=== PATIENT | female | born 1955 ===

== ENCOUNTER 2016-07-03 07:35 | Emergency (ER) | payer OTHER ==
[2016-07-03 08:01] VITALS: BP 136/83; PULSE 105; RESP 20; TEMP 98.1; O2SAT 98; BMI 27.3
--- NOTE | 2016-07-03 08:32 | C.PDOC ---
History Of Present Illness 60 y/o female presents to ED with complaints of itchy rash diffuse through whole body for 1 day. Patient denies any fever, chills, N/V/D. No further complaints at this time. Time Seen by Provider: 07/03/16 07:36 Chief Complaint (Nursing): Abnormal Skin Integrity History Per: Patient History/Exam Limitations: no limitations Onset/Duration Of Symptoms: Days Quality Of Symptoms: Itching Past Medical History Reviewed: Historical Data, Nursing Documentation, Vital Signs Vital Signs: Last Vital Signs Temp 98.1 F 07/03/16 07:45 Pulse 105 H 07/03/16 07:45 Resp 20 07/03/16 07:45 BP 136/83 07/03/16 07:45 Pulse Ox 98 07/03/16 17:56 Family History: States: Unknown Family Hx - Social History Hx Alcohol Use: No Hx Substance Use: No - Immunization History Hx Tetanus Toxoid Vaccination: Yes Hx Influenza Vaccination: Yes Hx Pneumococcal Vaccination: No Review Of Systems Except As Marked, All Systems Reviewed And Found Negative. Constitutional: Negative for: Fever, Chills Respiratory: Negative for: Shortness of Breath Gastrointestinal: Negative for: Nausea, Vomiting, Diarrhea Skin: Positive for: Rash Physical Exam - Physical Exam Appears: Non-toxic, No Acute Distress Skin: Normal Color, Warm Head: Atraumatic, Normacephalic Oral Mucosa: Moist Throat: Normal Neck: Normal ROM Cardiovascular: Rhythm Regular Respiratory: No Rales, No Rhonchi, No Wheezing Extremity: Normal ROM, Other Neurological/Psych: Oriented x3, Normal Speech, Normal Cognition ED Course And Treatment O2 Sat by Pulse Oximetry: 98 (Room air ) Progress Note: Patient given Benadryl and Prednisone. On re-evaluation feeling better, lungs clear Reassessment Condition: Improved Disposition Counseled Patient/Family Regarding: Diagnosis, Need For Followup, Rx Given - Disposition Referrals: [facility] [Outside] [facility] [Outside] Disposition: HOME/ ROUTINE Disposition Time: 08:30 Condition: IMPROVED Additional Instructions: Benadryl as needed for itch Prescriptions: predniSONE [Prednisone] 60 mg PO DAILY #4 tab Instructions: Urticaria (ED), Allergies (ED), General Allergic Reaction (ED) Print Language: FAROESE - POA Present On Arrival: None - Clinical Impression Clinical Impression: Urticaria, Allergic urticaria - PA / MEDICAL BILLING SPECIALIST / Resident Statement MD/DO has reviewed & agrees with the documentation as recorded. - Scribe Statement The provider has reviewed the documentation as recorded by the Vinicio Duque All medical record entries made by the Vinicio were at my direction and personally dictated by me. I have reviewed the chart and agree that the record accurately reflects my personal performance of the history, physical exam, medical decision making, and the department course for this patient. I have also personally directed, reviewed, and agree with the discharge instructions and disposition.
== END 2016-07-03 09:05 | disposition home or self-care (01) ==
LOC: C.ER 07:35
DX: L50.0 Allergic urticaria (principal)

== ENCOUNTER 2016-07-25 08:37 | Emergency (ER) | payer OTHER ==
[2016-07-25 08:37] VITALS: BMI 26.5
[2016-07-25 08:49] VITALS: TEMP 97.5
--- NOTE | 2016-07-25 09:43 | C.PDOC ---
History Of Present Illness 60 y/o F p/w rash since yesterday. Patient reports this rash to her thorax, arms , and scalp. She states it is itchy. She denies any known exposures. Denies throat swelling, drooling, dyspnea. Has taken no medications for it. Time Seen by Provider: 07/25/16 09:05 Chief Complaint (Nursing): Abnormal Skin Integrity Past Medical History Vital Signs: Last Vital Signs Temp 97.5 F L 07/25/16 08:48 Pulse 99 H 07/25/16 08:48 Resp 20 07/25/16 08:48 BP 99/60 L 07/25/16 08:48 Pulse Ox 99 07/25/16 08:48 Family History: States: No Known Family Hx, Unknown Family Hx - Social History Hx Alcohol Use: No Hx Substance Use: No - Immunization History Hx Tetanus Toxoid Vaccination: Yes Hx Influenza Vaccination: Yes Hx Pneumococcal Vaccination: No Review Of Systems Except As Marked, All Systems Reviewed And Found Negative. Constitutional: Negative for: Fever Cardiovascular: Negative for: Chest Pain Respiratory: Negative for: Shortness of Breath Physical Exam - Physical Exam Appears: No Acute Distress Skin: Rash (urticaria diffusely to thorax and arms, blanching erythema, nontender) Head: Atraumatic, Normacephalic Eye(s): bilateral: Normal Inspection Oral Mucosa: Moist, No Drooling Tongue: No Swelling Lips: No Swelling Throat: No Erythema, No Exudate Neck: Normal ROM, Supple Cardiovascular: Rhythm Regular Respiratory: Normal Breath Sounds Extremity: No Tenderness, No Swelling Pulses: Left Radial: Normal, Right Radial: Normal Neurological/Psych: Normal Speech Gait: Steady ED Course And Treatment O2 Sat by Pulse Oximetry: 99 Medical Decision Making Medical Decision Making: Patient with generalized allergic reaction and no evidence of anaphylaxis. Will treat with benadryl, pepcid, and steroids. F/u PMD, instructed to return to the ER immediately for any changes in breathing or throat swelling. Disposition Counseled Patient/Family Regarding: Studies Performed, Diagnosis, Need For Followup, Rx Given - Disposition Disposition: HOME/ ROUTINE Disposition Time: 09:43 Condition: STABLE Prescriptions: DiphenhydrAMINE [Benadryl] 2 cap PO Q8 #25 cap Famotidine [Pepcid] 1 tab PO BID #14 tab Prednisone [Deltasone] 2 tab PO DAILY #8 tablet Instructions: General Allergic Reaction (ED) - Clinical Impression Clinical Impression: Urticaria
[2016-07-25 09:56] VITALS: BP 125/78; PULSE 75; RESP 16; O2SAT 97
== END 2016-07-25 09:55 | disposition home or self-care (01) ==
LOC: C.ER 08:37
DX: L50.9 Urticaria, unspecified (principal)

== ENCOUNTER 2016-07-29 08:19 | Inpatient (IN) | payer OTHER ==
[2016-07-29 08:28] VITALS: BMI 21.9
[2016-07-29] MEDS ORDERED: Sodium Chloride 0.9% 1,000 ML IV ONE (08:47)
[2016-07-29] MEDS ORDERED: Albuterol-Ipratrop 3 mg / 0.5 (3 ml) UD ONE ×4 (08:47→15:15)
[2016-07-29] MEDS ORDERED: Albuterol-Ipratrop 3 mg / 0.5 (3 ml) UD INH STA ×3 (08:47→11:23)
[2016-07-29] MEDS ORDERED: Sodium Chloride 0.9% 1,000 ML ONE (08:54)
[2016-07-29 09:03] LABS: BASO # 0.1 K/uL (0.0-0.2); BASO % 0.4 % (0.0-2.0); EOS # 0.1 K/uL (0.0-0.7); EOS % 0.5 % (0.0-4.0); HEMATOCRIT 41.3 % (34.0-47.0); LYMPH # 4.2 K/uL (1.0-4.3); LYMPH % 28.6 % (20.0-40.0); MEAN CELL VOLUME 92.6 fL (81.0-99.0); MEAN CORPUSCULAR HEMOGLOBIN 30.8 pg (27.0-31.0); MEAN CORPUSCULAR HGB CONC 33.3 g/dL (33.0-37.0); MEAN PLATELET VOLUME 9.2 fL (7.2-11.7); MONO # 1.1 K/uL (0.0-0.8); MONO % 7.6 % (0.0-10.0); RED CELL DISTRIBUTION WIDTH 12.9 % (11.5-14.5); WHITE BLOOD COUNT 14.5 K/uL (4.8-10.8)
[2016-07-29 09:30] LABS: CHLORIDE 100 mmol/L (98-107); POTASSIUM 3.5 mmol/L (3.6-5.2); SODIUM 136 mmol/L (132-148)
[2016-07-29 09:32] LABS: ALB/GLOB RATIO 1.4 (1.0-2.1); ALKALINE PHOSPHATASE 102 U/L (38-126); AST/SGOT 27 U/L (14-36); BILIRUBIN,TOTAL 0.6 mg/dL (0.2-1.3); CARBON DIOXIDE 27 mmol/L (22-30); GFR AFRICAN-AMERICAN > 60
[2016-07-29 09:33] LABS: ALT/SGPT 26 U/L (9-52); BLOOD UREA NITROGEN 13 mg/dL (7-17); GLUCOSE,RANDOM 99 mg/dL (65-105)
--- NOTE | 2016-07-29 09:57 | C.PDOC ---
History Of Present Illness 60 yr old female presents to the ER for evaluation of a rash which started yesterday. Patient states today, while on her way to work she started feel SOB and came in to ED. States the rash is itchy and has had this multiple times since April and has been seen here but never followed up outpatient. Also reports took 50mg of Benadryl this morning. Denies fever, chills, vision changes , chest pain, nausea, vomiting, weakness or numbness. Time Seen by Provider: 07/29/16 08:34 Chief Complaint (Nursing): Allergic Reaction History Per: Patient History/Exam Limitations: no limitations Onset/Duration Of Symptoms: Days (1) Possible Cause: Unknown Associated Symptoms: Itching Home/EMS Treatment: Benadryl (50mg) Recent travel outside of the [place]: No Past Medical History Reviewed: Historical Data, Nursing Documentation, Vital Signs Vital Signs: Last Vital Signs Temp 98.1 F 07/29/16 17:08 Pulse 77 07/29/16 17:08 Resp 18 07/29/16 17:08 BP 111/48 L 07/29/16 17:08 Pulse Ox 95 07/29/16 17:08 - Medical History PMH: Asthma Family History: States: No Known Family Hx - Social History Hx Alcohol Use: No Hx Substance Use: No - Immunization History Hx Tetanus Toxoid Vaccination: Yes Hx Influenza Vaccination: Yes Hx Pneumococcal Vaccination: No Review Of Systems Except As Marked, All Systems Reviewed And Found Negative. Constitutional: Negative for: Fever, Chills Eyes: Negative for: Vision Change Cardiovascular: Negative for: Chest Pain Gastrointestinal: Negative for: Nausea, Vomiting Skin: Positive for: Rash Neurological: Negative for: Weakness, Numbness Physical Exam - Physical Exam Appears: Well, Non-toxic, No Acute Distress Skin: Warm, Dry, Rash (Diffuse erythematous urticarial rash.) Head: Atraumatic, Normacephalic Eye(s): bilateral: Normal Inspection, PERRL, EOMI Oral Mucosa: Moist Throat: Normal, No Erythema, No Exudate, No Drooling Chest: Symmetrical, No Tenderness Cardiovascular: Rhythm Regular, No Murmur Respiratory: No Rales, Wheezing (Bilateral wheezing) Gastrointestinal/Abdominal: Normal Exam, Soft, No Tenderness, No Guarding, No Rebound Extremity: Normal ROM, No Swelling Neurological/Psych: Oriented x3, Normal Speech, Normal Motor ED Course And Treatment - Laboratory Results Result Diagrams: 07/29/16 09:00 07/29/16 09:00 O2 Sat by Pulse Oximetry: 94 - Radiology CXR: Viewed By Me, Read By Radiologist CXR Interpretation: Yes: No Acute Disease Progress Note: PLAN: CXR, CBC, CMP, Duoneb INH, Pecid IVP, Solumedrol IVP & Sodium Chloride IV. On ree-valuation, wheezing persists. Additional treatments ordered. On re-evaluation, wheezing improved. Pt notes she feels better. Dimished breath sounds. Pulse ox 90-93. Sob upon exertion. case discussed with dr Mariscal, agreed upon plan and admission. Disposition - Disposition Disposition: HOSPITALIZED Disposition Time: 14:00 Condition: STABLE - Clinical Impression Clinical Impression: Exacerbation of asthma, Allergic urticaria - PA / ACCOUNTING CONSULTANT / Resident Statement MD/DO has reviewed & agrees with the documentation as recorded. - Scribe Statement The provider has reviewed the documentation as recorded by the Scribe Giovana Falcon All medical record entries made by the Scribe were at my direction and personally dictated by me. I have reviewed the chart and agree that the record accurately reflects my personal performance of the history, physical exam, medical decision making, and the department course for this patient. I have also personally directed, reviewed, and agree with the discharge instructions and disposition.
--- NOTE | 2016-07-29 10:20 | RAD ---
PROCEDURE: CHEST RADIOGRAPH, 1 VIEW HISTORY: SOB COMPARISON: None available. FINDINGS: LUNGS: Biapical pleural thickening. No focal infiltrate or effusion. PLEURA: No pneumothorax or pleural fluid seen. CARDIOVASCULAR: Normal. OSSEOUS STRUCTURES: No significant abnormalities. VISUALIZED UPPER ABDOMEN: Normal. OTHER FINDINGS: None. IMPRESSION: No active disease.
--- NOTE | 2016-07-29 13:41 | CP.PCM.HP ---
History of Present Illness - History of Present Illness History of Present Illness: COMPREHENSIVE HISTORY & PHYSICAL EXAM HPI WHILE GOING TO WORK PT DEVELOPED RASH A/W SOB AND WHEEZING . PT RECEIVED MULTIPLE BRONCHODILATOR THERAPY BUT WHEEZE PERSISTED COUGH WITH WHITE EXPECTORATION PAST HIST. B.ASTHMA AND RASH FOR FEW MONTHS . NOT EVALUATED BY DERMATOLOGY PERSONAL HIST: Smoking. HEAVY Alcohol. N Allergy N Travel_- . FAMILY HIST : ROS : Constitutional: Negative for weight change, chills, Eyes: Negative for redness , swelling, itching, discharge, vision changes, blurry vision, double vision, glaucoma, cataracts, Ears: Negative for hearing loss, ringing, , tinnitus, vertigo Nose: Negative for rhinorrhea, stuffiness, sniffing, itching, postnasal drip, discoloration, nasal congestion and epistaxis. Throat: Negative for throat clearing, sore throat, hoarseness, difficulty swallowing and difficulty speaking. Respiratory: POS for cough, chest tightness, sputum or phlegm, chronic cough , NO hemoptysis, POS wheezing, snoring at night, pleuritic chest pain and daytime somnolence. Cardiovascular: Negative for chest pain, palpitations, orthopnea, PND, Edema of legs, leg cramps, angina, claudication, , irregular heartbeat, Neurology: Negative for irritability, muscle weakness, numbness and tingling, seizures, tremors, migraines, slurred speech, syncope, memory loss, mood changes , recurrent headaches Gastrointestinal: Negative for difficulty swallowing, diarrhea, constipation, black stools, rectal bleeding, nausea, flatulence, reflux, poor appetite, changes in bowel habits, abdominal pain Genitourinary: Negative for frequent urination, hematuria, discharge, incontinence, urinary retention, frequent UTI, Psychiatric: Negative for depression, anxiety/panic, suicidal tendencies, Musculoskeletal: Negative for swollen joints, back pain, , neck pain, morning stiffness of joints, . Skin: Negative for rash, ulcers, itching, dry skin and pigmented lesions. P/E: Constitutional: Appears stated age and in no apparent distress. Head: Normocephalic. Ears: External ear canals patent without inflammation. Tympanic membranes intact with normal light reflex and landmark. Eyes: Pupils are central, bilaterally equal, symmetrical and reacts to light with normal movements and no icterus or pallor. Nose: External nares are patent. Mucosa is pink Mouth-Throat: Good general appearance and condition. No post-pharyngeal/oropharyngeal erythema and tonsillar hypertrophy. Good dental hygiene. Neck-Lymphatic: Neck is supple with normal ROM, no thyromegaly, lymph nodes or masses. JVD is normal with no carotid bruit. Lungs:MATTY WHEEZE Cardiovascular: S1 and S2 are normal with no murmurs, gallops and rub. GI Exam: No hepatomegaly. Abdomen is soft and non-tender. No Organomegaly , masses or hernias are evident and bowel sounds are normal and active. Neurology: Higher function and all cranial nerves intact, with no gross motor or sensory deficit. Superficial and deep reflexes are normal with downwards planters. No cerebellar deficit with normal gait. Musculoskeletal: No tender spots with normal curvature of the spine with no swelling or restricted ROM of the small and large joints. Extremities: Homans sign absent. Intact pulses with no pitting edema, calf tenderness or skin color changes. Skin: No rash, eruptions or abnormal skin pigmentation LAB/RADIOLOGY: ASSESMENT : ACUTE EXACERBATION OF COPD WITH RESP INFECTION RASH , ? URTICARIAL PLAN: NEBULISER/STEROIDS /AB Present on Admission - Present on Admission Any Indicators Present on Admission: No Past Patient History - Past Social History Smoking Status: Heavy Smoker > 10 Cigarettes Daily - PULMONARY Hx Asthma: Yes - ENDOCRINE/METABOLIC Other/Comment: Thyroid dis - PSYCHIATRIC Hx Substance Use: No - SURGICAL HISTORY Hx Surgeries: Yes Hx Section: Yes - ANESTHESIA Hx Anesthesia: Yes Hx Anesthesia Reactions: No Meds Allergies/Adverse Reactions: Allergies Allergy/AdvReac Type Severity Reaction Status Date / Time Penicillins Allergy Verified 07/29/16 08:26 Results - Vital Signs Recent Vital Signs: Last Vital Signs Temp 99.1 F 07/29/16 08:27 Pulse 100 H 07/29/16 12:12 Resp 16 07/29/16 12:12 BP 112/53 L 07/29/16 12:12 Pulse Ox 93 L 07/29/16 12:12 - Labs Result Diagrams: 07/31/16 06:24 07/31/16 06:24
[2016-07-29] MEDS: Albuterol-Ipratrop 3 mg / 0.5 (3 ml) UD INH SCH (15:13)
[2016-07-29] MEDS ORDERED: MethylPREDNISolone 40 mg Vial ONE (17:05)
[2016-07-29 21:02] LABS: RBC URINE < 1 /hpf (0-3); TRANSITIONAL EPITHIAL < 1 /hpf (0-3); URINE BACTERIA RARE (<OCC); URINE BILIRUBIN NEGATIVE (NEGATIVE); URINE BLOOD NEGATIVE (NEGATIVE); URINE COLOR Yellow (YELLOW); URINE GLUCOSE (UA) 3+ mg/dL (Normal); URINE KETONE NEGATIVE (NEGATIVE); URINE LEUKOCYTE ESTERASE NEG Leu/uL (Negative); URINE PROTEIN NEGATIVE (NEGATIVE); URINE UROBILINOGEN NORMAL mg/dL (0.2-1.0); WBC URINE < 1 /hpf (0-5)
[2016-07-29] MEDS: Ciprofloxacin 400mg/200ml D5W 400 MG/200 ML BAG IVPB SCH (22:21)
--- NOTE | 2016-07-29 22:25 | CP.PCM.CON ---
History of Present Illness - History of Present Illness History of Present Illness: INFECTIOUS DISEASE CONSULT; DICTATED DICTATION #[id number]. SEE REPORTS. SEE ORDERS. Past Patient History - Past Medical History & Family History Past Medical History?: Yes - Past Social History Smoking Status: Heavy Smoker > 10 Cigarettes Daily - CARDIAC Hx Cardiac Disorders: No - PULMONARY Hx Respiratory Disorders: Yes Hx Asthma: Yes - NEUROLOGICAL Hx Neurological Disorder: No - HEENT Hx HEENT Problems: No - RENAL Hx Chronic Kidney Disease: No - ENDOCRINE/METABOLIC Hx Endocrine Disorders: Yes Other/Comment: Thyroid dis - HEMATOLOGICAL/ONCOLOGICAL Hx Blood Disorders: No - INTEGUMENTARY Hx Dermatological Problems: No - MUSCULOSKELETAL/RHEUMATOLOGICAL Hx Musculoskeletal Disorders: No Hx Falls: No - GASTROINTESTINAL Hx Gastrointestinal Disorders: No - GENITOURINARY/GYNECOLOGICAL Hx Genitourinary Disorders: No - PSYCHIATRIC Hx Psychophysiologic Disorder: No Hx Substance Use: No - SURGICAL HISTORY Hx Surgeries: Yes Hx Section: Yes - ANESTHESIA Hx Anesthesia: Yes Hx Anesthesia Reactions: No Meds Allergies/Adverse Reactions: Allergies Allergy/AdvReac Type Severity Reaction Status Date / Time Penicillins Allergy Verified 07/29/16 08:26 - Medications Medications: Current Medications Albuterol/Ipratropium (Duoneb 3 Mg/0.5 Mg (3 Ml) Ud) 3 ml INH RQ6 [facility] Last Admin: 07/29/16 15:13 Dose: 3 ml Hydroxyzine HCl (Atarax) 25 mg PO TID [facility] Last Admin: 07/29/16 19:30 Dose: 25 mg Ciprofloxacin (Cipro 400mg/200ml Dsw) 400 mg in 200 mls @ 133 mls/hr IVPB Q12H [facility] Last Admin: 07/29/16 22:21 Dose: 133 mls/hr Methylprednisolone (Solu-Medrol) 60 mg IV Q8H [facility] Last Admin: 07/29/16 22:21 Dose: 60 mg Results - Vital Signs Recent Vital Signs: Last Vital Signs Temp 98.1 F 07/29/16 17:08 Pulse 77 07/29/16 17:08 Resp 18 07/29/16 17:08 BP 111/48 L 07/29/16 17:08 Pulse Ox 94 L 07/29/16 19:52 - Labs Result Diagrams: 07/29/16 09:00 07/29/16 09:00 Labs: Laboratory Results - last 24 hr 07/29/16 20:46 Urine Color Yellow Urine Clarity Clear Urine pH 6.0 Ur Specific [place] 1.027 Urine Protein Negative Urine Glucose (UA) 3+ H Urine Ketones Negative Urine Blood Negative Urine Nitrate Negative Urine Bilirubin Negative Urine Urobilinogen Normal Ur Leukocyte Esterase Neg Urine WBC (Auto) < 1 Urine RBC (Auto) < 1 Ur Squamous Epith Cells 1 Ur Transition Epith Cell < 1 Urine Bacteria Rare
[2016-07-30] MEDS: Albuterol-Ipratrop 3 mg / 0.5 (3 ml) UD INH SCH ×4 (01:16→20:16)
[2016-07-30] MEDS ORDERED: guaiFENesin 100 mg/5 ml Syrup UD PO ONE (03:10)
[2016-07-30 08:59] LABS: CHLORIDE 106 mmol/L (98-107); POTASSIUM 3.8 mmol/L (3.6-5.2); SODIUM 141 mmol/L (132-148)
[2016-07-30 09:01] LABS: ALB/GLOB RATIO 1.3 (1.0-2.1); ALKALINE PHOSPHATASE 95 U/L (38-126); AST/SGOT 30 U/L (14-36); BILIRUBIN,TOTAL 0.5 mg/dL (0.2-1.3); CARBON DIOXIDE 26 mmol/L (22-30); GFR AFRICAN-AMERICAN > 60; TOTAL PROTEIN 6.5 g/dL (6.3-8.3)
[2016-07-30 09:02] LABS: ALT/SGPT 38 U/L (9-52); BLOOD UREA NITROGEN 12 mg/dL (7-17); CALCIUM 9.3 mg/dl (8.6-10.4); GLUCOSE,RANDOM 122 mg/dL (65-105)
--- NOTE | 2016-07-30 09:35 | CON ---
DATE: 07/29/2016 REQUESTING PHYSICIAN: Dr. Mariscal. REASON FOR CONSULTATION: Shortness of breath, hypoxemia and rash. HISTORY OF PRESENT ILLNESS: The patient is a 60-year-old female with no significant past medical his tory except for asthma who presents to the ER for evaluation of shortness of breath and rash. The pa ish states while on her way to work she started feeling short of breath today and came to the ER. The patient in the ER was found to be hypoxemic with a pulse ox of 95%. Chest x-ray on admission jean-claude wed no active disease. The patient also was complaining of generalized itching and a rash which she states has had for around 6 months which comes and goes. The patient states that she has treated wit h Benadryl and it helps. The patient presently denies any fever or chills or any joint pains. The p atient denies any nausea, vomiting, or diarrhea. The patient denies any headaches or seizure disorde r. The patient was found to have leukocytosis with a WBC count of 14.5. Infectious disease consulta tion therefore requested for hypoxia, shortness of breath and rash. PAST MEDICAL HISTORY: Unremarkable except for asthma. FAMILY HISTORY: Unknown and presently noncontributory. SOCIAL HISTORY: The patient is a heavy smoker, smokes about 15 cigarettes a day for several years. Denies any substance abuse. Denies any alcohol use. VACCINATIONS: She is up-to-date on tetanus toxoid vaccination as well as influenza vaccination. Douglas s not remember taking pneumococcal vaccination. REVIEW OF SYSTEMS: RESPIRATORY: Complains of shortness of breath and cough. CARDIOVASCULAR SYSTEM: Denies any chest pains or palpitations. GASTROINTESTINAL: Denies any nausea, vomiting, diarrhea or obstipation. GENITOURINARY: Unremarkable. No dysuria, no hematuria. No history of kidney stones. CENTRAL NERVOUS SYSTEM: No headaches, no seizures. Rest of the review of systems is unremarkable. MUSCULOSKELETAL: Denies any joint pains. PHYSICAL EXAMINATION: GENERAL: The patient is a 60-year-old moderate-built female. Weight 124 pounds. Height 5 feet 3 in ches. VITAL SIGNS: Blood pressure 111/48, respirations 18, pulse 77, temperature 98.1, pulse ox 95% on alejandrina m air. HEENT: Pupils equal and reactive to light and accommodation. Extraocular movements full. Fundus ne gative. Sclerae nonicteric. Conjunctivae normal. JVP not elevated. Neck appears to be supple. No lymphadenopathy appreciated. No thrush noted. LUNGS: Bilateral wheezing and rhonchi. CARDIOVASCULAR SYSTEM: S1, S2. Sinus tachycardia. ABDOMEN: Soft, bowel sounds are present, nontender. EXTREMITIES: No cyanosis, clubbing or edema. CENTRAL NERVOUS SYSTEM: No gross deficits. Speech is normal. Awake, alert. Moves all extremities. Reflexes are equal and symmetrical. Cranial nerves seem to be intact. SKIN: Skin appears to be warm and dry with diffuse erythematous urticarial rash with palmar erythema noted. Rash is itchy. Soles/feet also have erythema bilaterally. Faint rash. Rose of excoriation s on trunk noted. LABORATORY DATA: WBCs are 14.5, H and H of 13.7 and 41.3, platelets 210. Creatinine 0.6, BUN of 13, potassium is 3.5. Liver function tests: AST, ALT normal. Bilirubin is normal. Chest x-ray on admission: No active disease. IMPRESSION: 1. Exacerbation of bronchial asthma. 2. Rash, etiology not clear, rule out vasculitis, rule out allergic dermatitis, rule out neurodermat itis, questionable. Cannot rule out scabies, but no burrows noted. PLAN: Pancultures. Will get PASTORA, double stranded DNA. Also will get sed rate, C-reactive proteins, serum IgE levels. Will start her on IV Cipro 400 mg q. 12 hourly as patient is ALLERGIC TO PENICILL IN. Continue IV Pepcid and IV Solu-Medrol as ordered by PMD. Presently on 60 mg q. 6 hourly, Atarax 25 mg t.i.d. p.r.n. for itching, pulmonary toilet, DuoNeb treatments. We will follow along with you and make further recommendations as needed. Thank you very much for allowing me to participate in the care of your patient. Lolis Chappell MD cc: [id number] TT: 07/30/2016 09:34:10 Confirmation # [id number] Dictation # [id number] mn
[2016-07-30] MEDS: Ciprofloxacin 400mg/200ml D5W 400 MG/200 ML BAG IVPB SCH ×2 (09:56→21:46)
[2016-07-30] MEDS: MethylPREDNISolone 40 mg Vial IV SCH ×2 (13:16→20:14)
--- NOTE | 2016-07-30 13:17 | CP.PCM.PN ---
Subjective - Date & Time of Evaluation Date of Evaluation: 07/30/16 Time of Evaluation: 13:15 - Subjective Subjective: CHIEF COMPLAINTS TODAY : COUGH WITH WHEEZING ROS. HEENT : N. Resp : POS cough, wheezing ,pleuritic CP , NO hemoptysis Cardio : No anginal CP, PND, orthopnea, palpitation GI : No abd.pain, n/v ,diarrhea or GI bleeding . DEPENDENCY CASE MANAGER : No headache, vertigo, focal deficit. Musculoskel : No joint swelling , Derm : No rash Psych : Normal affect. Ext : No swelling ,calf pain PE. Pt. is alert awake in no distress. V.S As noted in the chart Head ,ear nose,throat and eyes : Normal. Neck : Supple with normal carotids. Lungs: MATTY. SCATTERED RONCHI Heart : S1 & S2 normal with S4. No murmur. Abd : Soft non tender with normal bowel sounds. Neuro : Moves all ext. with no localized deficit. Ext : No edema with intact pulses.Non tender calves Derm : No rashes or decubitus ulcer. LABS/RADIOLOGY: ASSESSMENT/PLAN : CONT IV AB/STEROIDS Objective - Vital Signs/Intake and Output Vital Signs (last 24 hours): Temp Pulse Resp BP Pulse Ox 97.7 F 82 20 97/59 L 94 L 07/29/16 23:31 07/29/16 23:31 07/29/16 23:31 07/29/16 23:31 07/29/16 23:31 - Medications Medications: Current Medications Albuterol/Ipratropium (Duoneb 3 Mg/0.5 Mg (3 Ml) Ud) 3 ml INH RQ6 [facility] Last Admin: 07/30/16 01:16 Dose: 3 ml Heparin Sodium (Porcine) (Heparin) 5,000 units SC Q12 [facility] Last Admin: 07/30/16 10:06 Dose: 5,000 units Hydroxyzine HCl (Atarax) 25 mg PO TID [facility] Last Admin: 07/30/16 09:56 Dose: 25 mg Ciprofloxacin (Cipro 400mg/200ml Dsw) 400 mg in 200 mls @ 133 mls/hr IVPB Q12H [facility] Last Admin: 07/30/16 09:56 Dose: 133 mls/hr Methylprednisolone (Solu-Medrol) 40 mg IV Q8H [facility] - Labs Labs: 07/30/16 08:29
--- NOTE | 2016-07-30 16:29 | CP.PCM.PN ---
Subjective - Date & Time of Evaluation Date of Evaluation: 07/30/16 Time of Evaluation: 16:29 - Subjective Subjective: CHIEF COMPLAINTS TODAY : afebrile, c/o cough and wheezing Generalized itching much less Rash faint generalized. ROS. HEENT : N. Resp : POS COUGH, WHEEZING , NO pleuritic CP , NO hemoptysis Cardio : No anginal CP, PND, orthopnea, palpitation GI : No abd.pain, n/v ,diarrhea or GI bleeding . 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 Musculoskel : No joint swelling , Derm : No rash Psych : Normal affect. Ext : No swelling ,calf pain PE. Pt. is alert awake in no distress. V.S As noted in the chart Head ,ear nose,throat and eyes : Normal. Neck : Supple with normal carotids. Lungs: MATTY. SCATTERED RONCHI /EXPIRATORY WHEEZE Heart : S1 & S2 normal with S4. No murmur. Abd : Soft non tender with normal bowel sounds. Neuro : Moves all ext. with no localized deficit. Ext : No edema with intact pulses.Non tender calves Derm : GENERALIZED FAINT ERYTHEMATOUS RASH MORE PROMINENT LOWER EXTREMITIES AND ARMS. LABS/RADIOLOGY: reviewed BLOOD CULTURES -VE TO DATE ASSESSMENT; exacerbation of bronchial asthma Chronic Rash generalized etiology not clear/ ? vasculitis / ALLERGIC/CONTACT DERMATITIS. PLAN; CONTINUE iv CIPRO 400 MG EVERY 12 HOURLY 07/29 iv SOLU-mEDROL 40 MG EVERY 8 HOURLY ATARAX WHEN NECESSARY PER pmd FOR ITCHING. fOLLOW-UP CULTURES AND ADJUST ANTIBIOTICS. Objective - Vital Signs/Intake and Output Vital Signs (last 24 hours): Temp Pulse Resp BP Pulse Ox 98.3 F 97 H 18 119/61 92 L 07/30/16 08:00 07/30/16 08:00 07/30/16 08:00 07/30/16 08:00 07/30/16 08:00 Intake and Output: 07/30/16 07/30/16 06:59 18:59 Intake Total 440 730 Balance 440 730 - Medications Medications: Current Medications Albuterol/Ipratropium (Duoneb 3 Mg/0.5 Mg (3 Ml) Ud) 3 ml INH RQ6 [facility] Last Admin: 07/30/16 13:31 Dose: Not Given Heparin Sodium (Porcine) (Heparin) 5,000 units SC Q12 [facility] Last Admin: 07/30/16 10:06 Dose: 5,000 units Hydroxyzine HCl (Atarax) 25 mg PO TID [facility] Last Admin: 07/30/16 13:17 Dose: 25 mg Ciprofloxacin (Cipro 400mg/200ml Dsw) 400 mg in 200 mls @ 133 mls/hr IVPB Q12H [facility] Last Admin: 07/30/16 09:56 Dose: 133 mls/hr Methylprednisolone (Solu-Medrol) 40 mg IV Q8H [facility] Last Admin: 07/30/16 13:16 Dose: 40 mg - Labs Labs: 07/30/16 08:29 Assessment and Plan (1) Allergic urticaria Status: Acute (2) Exacerbation of asthma Status: Acute
[2016-07-30 17:03] VITALS: RESP 20
[2016-07-31] MEDS: Albuterol-Ipratrop 3 mg / 0.5 (3 ml) UD INH SCH ×3 (01:38→19:06)
[2016-07-31] MEDS: MethylPREDNISolone 40 mg Vial IV SCH ×3 (05:38→21:26)
[2016-07-31 06:47] LABS: CHLORIDE 99 mmol/L (98-107); POTASSIUM 3.4 mmol/L (3.6-5.2); SODIUM 140 mmol/L (132-148)
[2016-07-31 06:49] LABS: ALB/GLOB RATIO 1.4 (1.0-2.1); AST/SGOT 38 U/L (14-36); BILIRUBIN,TOTAL 0.5 mg/dL (0.2-1.3); CARBON DIOXIDE 29 mmol/L (22-30); GFR AFRICAN-AMERICAN > 60; TOTAL PROTEIN 7.1 g/dL (6.3-8.3)
[2016-07-31 06:50] LABS: ALKALINE PHOSPHATASE 96 U/L (38-126); ALT/SGPT 53 U/L (9-52); BLOOD UREA NITROGEN 14 mg/dL (7-17); CALCIUM 9.1 mg/dl (8.6-10.4); GLUCOSE,RANDOM 109 mg/dL (65-105)
[2016-07-31 07:00] LABS: BASO % 0.1 % (0.0-2.0); HEMATOCRIT 41.5 % (34.0-47.0); LYMPH # 2.9 K/uL (1.0-4.3); LYMPH % 13.6 % (20.0-40.0); MEAN CELL VOLUME 94.1 fL (81.0-99.0); MEAN CORPUSCULAR HEMOGLOBIN 30.9 pg (27.0-31.0); MEAN CORPUSCULAR HGB CONC 32.9 g/dL (33.0-37.0); MEAN PLATELET VOLUME 9.6 fL (7.2-11.7); MONO # 1.5 K/uL (0.0-0.8); MONO % 6.8 % (0.0-10.0); NRBC % 0.1 % (0.0-2.0); RED CELL DISTRIBUTION WIDTH 13.1 % (11.5-14.5); WHITE BLOOD COUNT 21.3 K/uL (4.8-10.8)
[2016-07-31] MEDS: Ciprofloxacin 400mg/200ml D5W 400 MG/200 ML BAG IVPB SCH ×2 (10:52→21:27)
--- NOTE | 2016-07-31 11:29 | CP.PCM.PN ---
Subjective - Date & Time of Evaluation Date of Evaluation: 07/31/16 Time of Evaluation: 11:28 - Subjective Subjective: CHIEF COMPLAINTS TODAY : COUGH WITH WHEEZING WBC 21K ROS. HEENT : N. Resp : POS cough, wheezing ,pleuritic CP , NO hemoptysis Cardio : No anginal CP, PND, orthopnea, palpitation GI : No abd.pain, n/v ,diarrhea or GI bleeding . 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 Musculoskel : No joint swelling , Derm : No rash SEEN Psych : Normal affect. Ext : No swelling ,calf pain PE. Pt. is alert awake in no distress. V.S As noted in the chart Head ,ear nose,throat and eyes : Normal. Neck : Supple with normal carotids. Lungs: MATTY. SCATTERED RONCHI Heart : S1 & S2 normal with S4. No murmur. Abd : Soft non tender with normal bowel sounds. Neuro : Moves all ext. with no localized deficit. Ext : No edema with intact pulses.Non tender calves Derm : No rashes or decubitus ulcer. LABS/RADIOLOGY: ASSESSMENT/PLAN : CONT IV AB/STEROIDS Objective - Vital Signs/Intake and Output Vital Signs (last 24 hours): Temp Pulse Resp BP Pulse Ox 97.8 F 79 20 150/55 L 97 07/31/16 08:00 07/31/16 08:00 07/31/16 08:00 07/31/16 08:00 07/31/16 08:00 Intake and Output: 07/30/16 07/31/16 23:59 11:59 Intake Total 1230 Balance 1230 - Medications Medications: Current Medications Albuterol/Ipratropium (Duoneb 3 Mg/0.5 Mg (3 Ml) Ud) 3 ml INH RQ6 [facility] Last Admin: 07/31/16 08:41 Dose: 3 ml Heparin Sodium (Porcine) (Heparin) 5,000 units SC Q12 [facility] Last Admin: 07/31/16 10:50 Dose: 5,000 units Hydroxyzine HCl (Atarax) 25 mg PO TID [facility] Last Admin: 07/31/16 10:50 Dose: 25 mg Ciprofloxacin (Cipro 400mg/200ml Dsw) 400 mg in 200 mls @ 133 mls/hr IVPB Q12H [facility] Last Admin: 07/31/16 10:52 Dose: 133 mls/hr Methylprednisolone (Solu-Medrol) 40 mg IV Q8H [facility] Last Admin: 07/31/16 05:38 Dose: 40 mg - Labs Labs: 07/31/16 06:24 07/31/16 06:24
--- NOTE | 2016-07-31 16:42 | CP.PCM.PN ---
Subjective - Date & Time of Evaluation Date of Evaluation: 07/31/16 Time of Evaluation: 16:42 - Subjective Subjective: CHIEF COMPLAINTS TODAY : afebrile, c/o cough and less wheezing. denies itching Rash MUCH improved wbc21.3 ?steroids ROS. HEENT : N. Resp : POS COUGH, WHEEZING , NO pleuritic CP , NO hemoptysis Cardio : No anginal CP, PND, orthopnea, palpitation GI : No abd.pain, n/v ,diarrhea or GI bleeding . EVENTS INTERN : No headache, vertigo, focal deficit. Musculoskel : No joint swelling , Derm : rash IMPROVING. Psych : Normal affect. Ext : No swelling ,calf pain PE. Pt. is alert awake in no distress. V.S As noted in the chart Head ,ear nose,throat and eyes : Normal. Neck : Supple with normal carotids. Lungs: MATTY. SCATTERED RONCHI /EXPIRATORY WHEEZE Heart : S1 & S2 normal with S4. No murmur. Abd : Soft non tender with normal bowel sounds. Neuro : Moves all ext. with no localized deficit. Ext : No edema with intact pulses.Non tender calves Derm : GENERALIZED FAINT ERYTHEMATOUS RASH FADING LABS/RADIOLOGY: reviewed ESR N-13 BLOOD CULTURES -VE TO DATE LFTS AST 38,ALT53 ,BILI 0.5 ALP N. SERUM IGE 617 HIGH ASSESSMENT; exacerbation of bronchial asthma Chronic Rash generalized etiology not clear/ ? vasculitis / ALLERGIC/CONTACT DERMATITIS. PLAN; CONTINUE iv CIPRO 400 MG EVERY 12 HOURLY 6/12 iv SOLU-mEDROL 40 MG EVERY 8 HOURLY. DECREASE STEROIDS ATARAX WHEN NECESSARY PER pmd FOR ITCHING. fOLLOW-UP CULTURES AND ADJUST ANTIBIOTICS. PT IS A HEAVY SMOKER. ENCOURAGED TO STOP SMOKING. Objective - Vital Signs/Intake and Output Vital Signs (last 24 hours): Temp Pulse Resp BP Pulse Ox 97.8 F 79 20 150/55 L 97 07/31/16 08:00 07/31/16 08:00 07/31/16 08:00 07/31/16 08:00 07/31/16 08:00 - Medications Medications: Current Medications Albuterol/Ipratropium (Duoneb 3 Mg/0.5 Mg (3 Ml) Ud) 3 ml INH RQ6 [facility] Last Admin: 07/31/16 08:41 Dose: 3 ml Heparin Sodium (Porcine) (Heparin) 5,000 units SC Q12 [facility] Last Admin: 07/31/16 10:50 Dose: 5,000 units Hydroxyzine HCl (Atarax) 25 mg PO TID [facility] Last Admin: 07/31/16 13:49 Dose: Not Given Ciprofloxacin (Cipro 400mg/200ml Dsw) 400 mg in 200 mls @ 133 mls/hr IVPB Q12H [facility] Last Admin: 07/31/16 10:52 Dose: 133 mls/hr Methylprednisolone (Solu-Medrol) 40 mg IV Q8H [facility] Last Admin: 07/31/16 12:45 Dose: 40 mg Nicotine (Nicoderm Cq) 1 patch TD DAILY [facility] Last Admin: 07/31/16 12:45 Dose: 1 patch Assessment and Plan (1) Allergic urticaria Status: Acute (2) Exacerbation of asthma Status: Acute
[2016-08-01] MEDS: Albuterol-Ipratrop 3 mg / 0.5 (3 ml) UD INH SCH ×4 (01:54→19:57)
[2016-08-01] MEDS: MethylPREDNISolone 40 mg Vial IV SCH ×3 (05:30→21:30)
[2016-08-01 09:01] LABS: BASO % 0.1 % (0.0-2.0); HEMATOCRIT 41.2 % (34.0-47.0); LYMPH # 1.8 K/uL (1.0-4.3); MEAN CELL VOLUME 92.5 fL (81.0-99.0); MEAN CORPUSCULAR HEMOGLOBIN 30.7 pg (27.0-31.0); MEAN CORPUSCULAR HGB CONC 33.2 g/dL (33.0-37.0); MEAN PLATELET VOLUME 9.6 fL (7.2-11.7); MONO # 0.8 K/uL (0.0-0.8); MONO % 4.3 % (0.0-10.0); NRBC % 0.1 % (0.0-2.0); RED CELL DISTRIBUTION WIDTH 12.9 % (11.5-14.5); WHITE BLOOD COUNT 18.3 K/uL (4.8-10.8)
[2016-08-01 09:30] LABS: CHLORIDE 100 mmol/L (98-107); POTASSIUM 3.9 mmol/L (3.6-5.2); SODIUM 138 mmol/L (132-148)
[2016-08-01 09:32] LABS: ALB/GLOB RATIO 1.4 (1.0-2.1); AST/SGOT 18 U/L (14-36); BILIRUBIN,TOTAL 0.4 mg/dL (0.2-1.3); CARBON DIOXIDE 26 mmol/L (22-30); GFR AFRICAN-AMERICAN > 60; TOTAL PROTEIN 6.9 g/dL (6.3-8.3)
[2016-08-01 09:33] LABS: ALKALINE PHOSPHATASE 101 U/L (38-126); ALT/SGPT 46 U/L (9-52); BLOOD UREA NITROGEN 16 mg/dL (7-17); GLUCOSE,RANDOM 116 mg/dL (65-105)
[2016-08-01] MEDS: Ciprofloxacin 400mg/200ml D5W 400 MG/200 ML BAG IVPB SCH ×2 (10:48→21:53)
--- NOTE | 2016-08-01 13:24 | CP.PCM.PN ---
Subjective - Date & Time of Evaluation Date of Evaluation: 08/01/16 Time of Evaluation: 13:24 - Subjective Subjective: CHIEF COMPLAINTS TODAY : COUGH WITH WHEEZING WBC 21K ROS. HEENT : N. Resp : POS cough, wheezing ,pleuritic CP , NO hemoptysis Cardio : No anginal CP, PND, orthopnea, palpitation GI : No abd.pain, n/v ,diarrhea or GI bleeding . 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 Musculoskel : No joint swelling , Derm : No rash SEEN Psych : Normal affect. Ext : No swelling ,calf pain PE. Pt. is alert awake in no distress. V.S As noted in the chart Head ,ear nose,throat and eyes : Normal. Neck : Supple with normal carotids. Lungs: MATTY. SCATTERED RONCHI Heart : S1 & S2 normal with S4. No murmur. Abd : Soft non tender with normal bowel sounds. Neuro : Moves all ext. with no localized deficit. Ext : No edema with intact pulses.Non tender calves Derm : No rashes or decubitus ulcer. LABS/RADIOLOGY: ASSESSMENT/PLAN : CONT IV AB/STEROIDS Objective - Vital Signs/Intake and Output Vital Signs (last 24 hours): Temp Pulse Resp BP Pulse Ox 98 F 85 20 129/69 96 08/01/16 10:42 08/01/16 10:42 08/01/16 10:42 08/01/16 10:42 08/01/16 10:42 Intake and Output: 08/01/16 08/01/16 11:59 23:59 Intake Total 800 Balance 800 - Medications Medications: Current Medications Albuterol/Ipratropium (Duoneb 3 Mg/0.5 Mg (3 Ml) Ud) 3 ml INH RQ6 [facility] Last Admin: 08/01/16 13:04 Dose: 3 ml Heparin Sodium (Porcine) (Heparin) 5,000 units SC Q12 [facility] Last Admin: 08/01/16 10:43 Dose: 5,000 units Hydroxyzine HCl (Atarax) 25 mg PO TID [facility] Last Admin: 08/01/16 10:43 Dose: 25 mg Ciprofloxacin (Cipro 400mg/200ml Dsw) 400 mg in 200 mls @ 133 mls/hr IVPB Q12H [facility] Last Admin: 08/01/16 10:48 Dose: 133 mls/hr Methylprednisolone (Solu-Medrol) 40 mg IV Q8H [facility] Last Admin: 08/01/16 05:30 Dose: 40 mg Nicotine (Nicoderm Cq) 1 patch TD DAILY [facility] Last Admin: 08/01/16 10:43 Dose: 1 patch - Labs Labs: 08/01/16 08:47 08/01/16 08:47
--- NOTE | 2016-08-01 14:03 | CP.PCM.PN ---
Subjective - Date & Time of Evaluation Date of Evaluation: 08/01/16 Time of Evaluation: 14:03 - Subjective Subjective: CHIEF COMPLAINTS TODAY : afebrile, c/o cough and SOB denies itching Rash MUCH improved CT CHEST W/C 08/01/16: small subsegmental peripheral infiltrates, right middle lobe anterior segment and lingula. Hyperinflation consistent with COPD. Biapical bullous changes. Central peribronchial thickening consistent with bronchitis. No nodules or masses. ROS. HEENT : N. Resp : POS COUGH, WHEEZING , NO pleuritic CP , NO hemoptysis Cardio : No anginal CP, PND, orthopnea, palpitation GI : No abd.pain, n/v ,diarrhea or GI bleeding . 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 Musculoskel : No joint swelling , Derm : rash IMPROVING. Psych : Normal affect. Ext : No swelling ,calf pain PE. Pt. is alert awake in no distress. V.S As noted in the chart Head ,ear nose,throat and eyes : Normal. Neck : Supple with normal carotids. Lungs: MATTY. SCATTERED RONCHI /EXPIRATORY WHEEZE Heart : S1 & S2 normal with S4. No murmur. Abd : Soft non tender with normal bowel sounds. Neuro : Moves all ext. with no localized deficit. Ext : No edema with intact pulses.Non tender calves Derm : GENERALIZED FAINT ERYTHEMATOUS RASH FADING LABS/RADIOLOGY: reviewed ESR N-13 BLOOD CULTURES -VE TO DATE LFTS AST 38,ALT53 ,BILI 0.5 ALP N. SERUM IGE 617 HIGH ASSESSMENT; PNEUMONIA exacerbation of bronchial asthma/COPD Chronic Rash generalized etiology not clear/ ALLERGIC URTICARIA. PLAN; CONTINUE iv CIPRO 400 MG EVERY 12 HOURLY 07/29 iv SOLU-mEDROL 40 MG EVERY 8 HOURLY. DECREASE STEROIDS ADD sINGULAIR 10 MG BY MOUTH ONCE DAILY. ATARAX WHEN NECESSARY PER pmd FOR ITCHING. fOLLOW-UP CULTURES AND ADJUST ANTIBIOTICS. PT IS A HEAVY SMOKER. ENCOURAGED TO STOP SMOKING. Objective - Vital Signs/Intake and Output Vital Signs (last 24 hours): Temp Pulse Resp BP Pulse Ox 98 F 85 20 129/69 96 08/01/16 10:42 08/01/16 10:42 08/01/16 10:42 08/01/16 10:42 08/01/16 10:42 Intake and Output: 08/01/16 08/01/16 06:59 18:59 Intake Total 800 Balance 800 - Medications Medications: Current Medications Albuterol/Ipratropium (Duoneb 3 Mg/0.5 Mg (3 Ml) Ud) 3 ml INH RQ6 [facility] Last Admin: 08/01/16 13:04 Dose: 3 ml Heparin Sodium (Porcine) (Heparin) 5,000 units SC Q12 [facility] Last Admin: 08/01/16 10:43 Dose: 5,000 units Hydroxyzine HCl (Atarax) 25 mg PO TID [facility] Last Admin: 08/01/16 10:43 Dose: 25 mg Ciprofloxacin (Cipro 400mg/200ml Dsw) 400 mg in 200 mls @ 133 mls/hr IVPB Q12H [facility] Last Admin: 08/01/16 10:48 Dose: 133 mls/hr Methylprednisolone (Solu-Medrol) 40 mg IV Q8H [facility] Last Admin: 08/01/16 13:45 Dose: 40 mg Nicotine (Nicoderm Cq) 1 patch TD DAILY [facility] Last Admin: 08/01/16 10:43 Dose: 1 patch - Labs Labs: 08/01/16 08:47 08/01/16 08:47 Assessment and Plan (1) Allergic urticaria Status: Acute (2) Exacerbation of asthma Status: Acute
--- NOTE | 2016-08-01 16:38 | RAD ---
PROCEDURE: CHEST RADIOGRAPH, 1 VIEW HISTORY: copd COMPARISON: None available. FINDINGS: LUNGS: Hyperinflation suggestive for COPD and or emphysematous changes. Biapical pleural thickening. Mild venous congestion. Mild peribronchial cuffing in the right hilar region. PLEURA: No pneumothorax or pleural fluid seen. CARDIOVASCULAR: Normal. OSSEOUS STRUCTURES: No significant abnormalities. VISUALIZED UPPER ABDOMEN: Normal. OTHER FINDINGS: None. IMPRESSION: Hyperinflation suggestive for COPD and or emphysematous changes. Biapical pleural thickening. Mild venous congestion. Mild peribronchial cuffing in the right hilar region.
[2016-08-01] MEDS ORDERED: Iodixanol 320 MG/ML 100 ML BOTTLE IV ONE (17:13)
--- NOTE | 2016-08-01 18:53 | CT ---
PROCEDURE: CT Chest with contrast HISTORY: copd COMPARISON: August 01, 2016. TECHNIQUE: Contiguous axial images were obtained through the chest with intravenous contrast enhancement. Sagittal and coronal reconstructions were performed. IV contrast: 100 cc Visipaque 320. Radiation dose (DLP): 212.84 mGy-cm. This CT exam was performed using one or more of the following dose reduction techniques: Automated exposure control, adjustment of the mA and/or kV according to patient size, and/or use of iterative reconstruction technique. FINDINGS: LUNGS: Small, subsegmental infiltrates medial segment right middle lobe, lingula. New line parabronchial thickening centrally without mucous plugging. Incidental finding(s): Subcentimeter calcified granuloma. Hyperinflation, manifestations of COPD. . Biapical, peripheral bullous change. MEDIASTINUM: Unremarkable thoracic aorta. No aneurysm or dissection. Normal sized heart. Main pulmonary artery unremarkable. No vascular congestion. No lymphadenopathy. PLEURA: No pleural fluid. No pneumothorax. BONES: No fracture. No destructive lesion. UPPER ABDOMEN: Grossly unremarkable. OTHER FINDINGS: None. IMPRESSION: Very small subsegmental peripheral infiltrates right middle lobe anterior segment and lingula. Hyperinflation/manifestations of COPD. Biapical bullous change. Central peribronchial thickening consistent with bronchitis. No additional pulmonary infiltrates identified. No suspicious pulmonary nodules or masses.
[2016-08-02] MEDS: Albuterol-Ipratrop 3 mg / 0.5 (3 ml) UD INH SCH ×4 (02:34→20:49)
[2016-08-02] MEDS: MethylPREDNISolone 40 mg Vial IV SCH ×3 (05:19→21:15)
[2016-08-02 08:50] LABS: BASO % 0.1 % (0.0-2.0); HEMATOCRIT 41.2 % (34.0-47.0); LYMPH # 1.7 K/uL (1.0-4.3); LYMPH % 9.8 % (20.0-40.0); MEAN CELL VOLUME 93.1 fL (81.0-99.0); MEAN CORPUSCULAR HEMOGLOBIN 30.7 pg (27.0-31.0); MEAN CORPUSCULAR HGB CONC 32.9 g/dL (33.0-37.0); MEAN PLATELET VOLUME 9.2 fL (7.2-11.7); MONO # 0.8 K/uL (0.0-0.8); MONO % 4.4 % (0.0-10.0); PLATELET COUNT 235 K/uL (130-400); RED CELL DISTRIBUTION WIDTH 12.5 % (11.5-14.5); WHITE BLOOD COUNT 17.4 K/uL (4.8-10.8)
[2016-08-02 09:59] LABS: CHLORIDE 99 mmol/L (98-107); SODIUM 138 mmol/L (132-148)
[2016-08-02 10:01] LABS: BILIRUBIN,TOTAL 0.4 mg/dL (0.2-1.3); CARBON DIOXIDE 27 mmol/L (22-30); GFR AFRICAN-AMERICAN > 60
[2016-08-02 10:02] LABS: ALB/GLOB RATIO 1.4 (1.0-2.1); ALKALINE PHOSPHATASE 109 U/L (38-126); ALT/SGPT 43 U/L (9-52); AST/SGOT 19 U/L (14-36); BLOOD UREA NITROGEN 16 mg/dL (7-17); CALCIUM 8.9 mg/dl (8.6-10.4); GLUCOSE,RANDOM 140 mg/dL (65-105); TOTAL PROTEIN 6.8 g/dL (6.3-8.3)
[2016-08-02 10:11] LABS: NEUTROPHIL 86 % (50-75); TOTAL CELLS COUNTED 100
--- NOTE | 2016-08-02 13:32 | CP.PCM.PN ---
Subjective - Date & Time of Evaluation Date of Evaluation: 08/02/16 Time of Evaluation: 13:30 - Subjective Subjective: CHIEF COMPLAINTS TODAY : COUGH WITH WHEEZIING DESATURATES ON EXERTION ROS. HEENT : N. Resp : POS cough, wheezing ,pleuritic CP , NO hemoptysis Cardio : No anginal CP, PND, orthopnea, palpitation GI : No abd.pain, n/v ,diarrhea or GI bleeding . 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 Musculoskel : No joint swelling , Derm : No rash SEEN Psych : Normal affect. Ext : No swelling ,calf pain PE. Pt. is alert awake in no distress. V.S As noted in the chart Head ,ear nose,throat and eyes : Normal. Neck : Supple with normal carotids. Lungs: MATTY. SCATTERED RONCHI Heart : S1 & S2 normal with S4. No murmur. Abd : Soft non tender with normal bowel sounds. Neuro : Moves all ext. with no localized deficit. Ext : No edema with intact pulses.Non tender calves Derm : No rashes or decubitus ulcer. LABS/RADIOLOGY: CT CHEST : BULLOUS EMPHYSEMA, BRONCHITIS , RML INFILTRATE ASSESSMENT/PLAN : CONT IV AB/STEROIDS Objective - Vital Signs/Intake and Output Vital Signs (last 24 hours): Temp Pulse Resp BP Pulse Ox 98.2 F 78 20 140/61 95 08/02/16 08:00 08/02/16 08:00 08/02/16 08:00 08/02/16 08:00 08/02/16 08:00 - Medications Medications: Current Medications Albuterol/Ipratropium (Duoneb 3 Mg/0.5 Mg (3 Ml) Ud) 3 ml INH RQ6 [facility] Last Admin: 08/02/16 08:23 Dose: 3 ml Ciprofloxacin (Cipro) 500 mg PO BID [facility] Last Admin: 08/02/16 10:08 Dose: 500 mg Hydroxyzine HCl (Atarax) 25 mg PO TID [facility] Last Admin: 08/02/16 10:08 Dose: 25 mg Methylprednisolone (Solu-Medrol) 40 mg IV Q8H [facility] Last Admin: 08/02/16 12:49 Dose: 40 mg Nicotine (Nicoderm Cq) 1 patch TD DAILY [facility] Last Admin: 08/02/16 10:08 Dose: 1 patch - Labs Labs: 08/02/16 08:36 08/02/16 08:36
--- NOTE | 2016-08-02 13:56 | CP.PCM.PN ---
Subjective - Date & Time of Evaluation Date of Evaluation: 08/02/16 Time of Evaluation: 13:56 - Subjective Subjective: CHIEF COMPLAINTS TODAY : afebrile, c/o cough and SOB denies itching CT CHEST W/C 08/01/16: small subsegmental peripheral infiltrates, right middle lobe anterior segment and lingula. Hyperinflation consistent with COPD. Biapical bullous changes. Central peribronchial thickening consistent with bronchitis. No nodules or masses. ROS. HEENT : N. Resp : POS COUGH, WHEEZING , NO pleuritic CP , NO hemoptysis Cardio : No anginal CP, PND, orthopnea, palpitation GI : No abd.pain, n/v ,diarrhea or GI bleeding . 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 Musculoskel : No joint swelling , Derm : rash IMPROVING. Psych : Normal affect. Ext : No swelling ,calf pain PE. Pt. is alert awake in no distress. V.S As noted in the chart Head ,ear nose,throat and eyes : Normal. Neck : Supple with normal carotids. Lungs: MATTY. SCATTERED RONCHI /EXPIRATORY WHEEZE Heart : S1 & S2 normal with S4. No murmur. Abd : Soft non tender with normal bowel sounds. Neuro : Moves all ext. with no localized deficit. Ext : No edema with intact pulses.Non tender calves Derm : GENERALIZED FAINT ERYTHEMATOUS RASH FADING LABS/RADIOLOGY: reviewed WBC 17.4 IMPROVING ESR N-13 BLOOD CULTURES -VE TO DATE LFTS 08/02/16 N SERUM IGE 617 HIGH SEC TO ASTHMA ASSESSMENT; PNEUMONIA exacerbation of bronchial asthma/COPD Chronic Rash generalized etiology not clear/ ALLERGIC URTICARIA. PLAN; CONTINUE iv CIPRO 400 MG EVERY 12 HOURLY 07/29 iv SOLU-mEDROL 40 MG EVERY 8 HOURLY. DECREASE STEROIDS ON sINGULAIR 10 MG BY MOUTH ONCE DAILY. ATARAX WHEN NECESSARY PER pmd FOR ITCHING. fOLLOW-UP CULTURES AND ADJUST ANTIBIOTICS. PT IS A HEAVY SMOKER. ENCOURAGED TO STOP SMOKING. Objective - Vital Signs/Intake and Output Vital Signs (last 24 hours): Temp Pulse Resp BP Pulse Ox 98.2 F 78 20 140/61 95 08/02/16 08:00 08/02/16 08:00 08/02/16 08:00 08/02/16 08:00 08/02/16 08:00 - Medications Medications: Current Medications Albuterol/Ipratropium (Duoneb 3 Mg/0.5 Mg (3 Ml) Ud) 3 ml INH RQ6 [facility] Last Admin: 08/02/16 08:23 Dose: 3 ml Ciprofloxacin (Cipro) 500 mg PO BID [facility] Last Admin: 08/02/16 10:08 Dose: 500 mg Hydroxyzine HCl (Atarax) 25 mg PO TID [facility] Last Admin: 08/02/16 10:08 Dose: 25 mg Methylprednisolone (Solu-Medrol) 40 mg IV Q8H [facility] Last Admin: 08/02/16 12:49 Dose: 40 mg Montelukast Sodium (Singulair) 10 mg PO QD7 [facility] Nicotine (Nicoderm Cq) 1 patch TD DAILY [facility] Last Admin: 08/02/16 10:08 Dose: 1 patch - Labs Labs: 08/02/16 08:36 08/02/16 08:36 Assessment and Plan (1) Allergic urticaria Status: Acute (2) Exacerbation of asthma Status: Acute
[2016-08-03] MEDS: Albuterol-Ipratrop 3 mg / 0.5 (3 ml) UD INH SCH ×3 (01:32→14:00)
[2016-08-03] MEDS: MethylPREDNISolone 40 mg Vial IV SCH ×3 (04:48→21:39)
[2016-08-03 08:40] LABS: BASO % 0.1 % (0.0-2.0); HEMATOCRIT 43.6 % (34.0-47.0); LYMPH # 1.6 K/uL (1.0-4.3); LYMPH % 9.9 % (20.0-40.0); MEAN CORPUSCULAR HEMOGLOBIN 30.8 pg (27.0-31.0); MEAN CORPUSCULAR HGB CONC 33.2 g/dL (33.0-37.0); MEAN PLATELET VOLUME 9.3 fL (7.2-11.7); MONO # 0.9 K/uL (0.0-0.8); MONO % 5.5 % (0.0-10.0); NRBC % 0.1 % (0.0-2.0); PLATELET COUNT 230 K/uL (130-400); RED CELL DISTRIBUTION WIDTH 12.7 % (11.5-14.5); WHITE BLOOD COUNT 16.3 K/uL (4.8-10.8)
[2016-08-03 08:59] LABS: CHLORIDE 97 mmol/L (98-107); POTASSIUM 4.1 mmol/L (3.6-5.2); SODIUM 136 mmol/L (132-148)
[2016-08-03 09:01] LABS: AST/SGOT 27 U/L (14-36); BILIRUBIN,TOTAL 0.4 mg/dL (0.2-1.3); CARBON DIOXIDE 26 mmol/L (22-30); GFR AFRICAN-AMERICAN > 60
[2016-08-03 09:02] LABS: ALB/GLOB RATIO 1.5 (1.0-2.1); ALKALINE PHOSPHATASE 103 U/L (38-126); ALT/SGPT 39 U/L (9-52); BLOOD UREA NITROGEN 18 mg/dL (7-17); CALCIUM 9.3 mg/dl (8.6-10.4); GLUCOSE,RANDOM 150 mg/dL (65-105); TOTAL PROTEIN 6.7 g/dL (6.3-8.3)
[2016-08-03 09:50] LABS: NEUTROPHIL 85 % (50-75); TOTAL CELLS COUNTED 100
[2016-08-03 09:51] LABS: GIANT PLATELETS PRESENT; LARGE PLATELETS PRESENT
--- NOTE | 2016-08-03 13:27 | CP.PCM.PN ---
Subjective - Date & Time of Evaluation Date of Evaluation: 08/03/16 Time of Evaluation: 13:27 - Subjective Subjective: CHIEF COMPLAINTS TODAY : afebrile, c/o LESS cough and SOB CT CHEST W/C 08/01/16: small subsegmental peripheral infiltrates, right middle lobe anterior segment and lingula. Hyperinflation consistent with COPD. Biapical bullous changes. Central peribronchial thickening consistent with bronchitis. No nodules or masses. ROS. HEENT : N. Resp : POS COUGH, WHEEZING , NO pleuritic CP , NO hemoptysis Cardio : No anginal CP, PND, orthopnea, palpitation GI : No abd.pain, n/v ,diarrhea or GI bleeding . 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 Musculoskel : No joint swelling , Derm : rash IMPROVING. Psych : Normal affect. Ext : No swelling ,calf pain PE. Pt. is alert awake in no distress. V.S As noted in the chart Head ,ear nose,throat and eyes : Normal. Neck : Supple with normal carotids. Lungs: MATTY. SCATTERED RONCHI /EXPIRATORY WHEEZE Heart : S1 & S2 normal with S4. No murmur. Abd : Soft non tender with normal bowel sounds. Neuro : Moves all ext. with no localized deficit. Ext : No edema with intact pulses.Non tender calves Derm : GENERALIZED FAINT ERYTHEMATOUS RASH FADING LABS/RADIOLOGY: reviewed ESR N-13 BLOOD CULTURES -VE TO DATE LFTS AST 38,ALT53 ,BILI 0.5 ALP N. SERUM IGE 617 HIGH ASSESSMENT; PNEUMONIA exacerbation of bronchial asthma/COPD Chronic Rash generalized etiology not clear/ ALLERGIC URTICARIA. PLAN; CONTINUE iv CIPRO 400 MG EVERY 12 HOURLY 07/29 iv SOLU-mEDROL 40 MG EVERY 8 HOURLY. DECREASE STEROIDS ADD sINGULAIR 10 MG BY MOUTH ONCE DAILY. ATARAX WHEN NECESSARY PER pmd FOR ITCHING. fOLLOW-UP CULTURES AND ADJUST ANTIBIOTICS. PT IS A HEAVY SMOKER. Objective - Vital Signs/Intake and Output Vital Signs (last 24 hours): Temp Pulse Resp BP Pulse Ox 98.1 F 87 20 122/73 95 08/03/16 08:00 08/03/16 08:00 08/03/16 08:00 08/03/16 08:00 08/03/16 08:00 Intake and Output: 08/03/16 08/03/16 06:59 18:59 Intake Total 900 Balance 900 - Medications Medications: Current Medications Albuterol/Ipratropium (Duoneb 3 Mg/0.5 Mg (3 Ml) Ud) 3 ml INH RQ6 [facility] Last Admin: 08/03/16 08:45 Dose: 3 ml Ciprofloxacin (Cipro) 500 mg PO BID [facility] Last Admin: 08/03/16 09:38 Dose: 500 mg Hydroxyzine HCl (Atarax) 25 mg PO TID [facility] Last Admin: 08/03/16 09:38 Dose: 25 mg Methylprednisolone (Solu-Medrol) 40 mg IV Q8H [facility] Last Admin: 08/03/16 04:48 Dose: 40 mg Montelukast Sodium (Singulair) 10 mg PO HS [facility] Last Admin: 08/02/16 21:15 Dose: 10 mg Nicotine (Nicoderm Cq) 1 patch TD DAILY [facility] Last Admin: 08/03/16 09:38 Dose: 1 patch - Labs Labs: 08/03/16 08:23 08/03/16 08:23 Assessment and Plan (1) Allergic urticaria Status: Acute (2) Exacerbation of asthma Status: Acute
--- NOTE | 2016-08-03 14:21 | CP.PCM.PN ---
Subjective - Date & Time of Evaluation Date of Evaluation: 08/03/16 Time of Evaluation: 14:20 - Subjective Subjective: CHIEF COMPLAINTS TODAY : COUGH WITH WHEEZIING DESATURATES ON EXERTION ROS. HEENT : N. Resp : POS cough, wheezing ,pleuritic CP , NO hemoptysis Cardio : No anginal CP, PND, orthopnea, palpitation GI : No abd.pain, n/v ,diarrhea or GI bleeding . 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 Musculoskel : No joint swelling , Derm : No rash SEEN Psych : Normal affect. Ext : No swelling ,calf pain PE. Pt. is alert awake in no distress. V.S As noted in the chart Head ,ear nose,throat and eyes : Normal. Neck : Supple with normal carotids. Lungs: MATTY. SCATTERED RONCHI Heart : S1 & S2 normal with S4. No murmur. Abd : Soft non tender with normal bowel sounds. Neuro : Moves all ext. with no localized deficit. Ext : No edema with intact pulses.Non tender calves Derm : No rashes or decubitus ulcer. LABS/RADIOLOGY: CT CHEST : BULLOUS EMPHYSEMA, BRONCHITIS , RML INFILTRATE ASSESSMENT/PLAN : CONT IV AB/STEROIDS Objective - Vital Signs/Intake and Output Vital Signs (last 24 hours): Temp Pulse Resp BP Pulse Ox 98.1 F 87 20 122/73 95 08/03/16 08:00 08/03/16 08:00 08/03/16 08:00 08/03/16 08:00 08/03/16 08:00 Intake and Output: 08/03/16 08/03/16 11:59 23:59 Intake Total 400 Balance 400 - Medications Medications: Current Medications Albuterol/Ipratropium (Duoneb 3 Mg/0.5 Mg (3 Ml) Ud) 3 ml INH RQ6 [facility] Last Admin: 08/03/16 08:45 Dose: 3 ml Ciprofloxacin (Cipro) 500 mg PO BID [facility] Last Admin: 08/03/16 09:38 Dose: 500 mg Hydroxyzine HCl (Atarax) 25 mg PO TID [facility] Last Admin: 08/03/16 13:54 Dose: Not Given Methylprednisolone (Solu-Medrol) 40 mg IV Q8H [facility] Last Admin: 08/03/16 13:53 Dose: 40 mg Montelukast Sodium (Singulair) 10 mg PO HS [facility] Last Admin: 08/02/16 21:15 Dose: 10 mg Nicotine (Nicoderm Cq) 1 patch TD DAILY [facility] Last Admin: 08/03/16 09:38 Dose: 1 patch - Labs Labs: 08/03/16 08:23 08/03/16 08:23
[2016-08-03 16:37] LABS: BASO # 0.2 K/uL (0.0-0.2); BASO % 1.2 % (0.0-2.0); EOS % 0.2 % (0.0-4.0); HEMATOCRIT 44.4 % (34.0-47.0); LYMPH # 1.8 K/uL (1.0-4.3); LYMPH % 9.1 % (20.0-40.0); MEAN CORPUSCULAR HEMOGLOBIN 30.9 pg (27.0-31.0); MEAN CORPUSCULAR HGB CONC 33.2 g/dL (33.0-37.0); MEAN PLATELET VOLUME 9.3 fL (7.2-11.7); MONO # 1.5 K/uL (0.0-0.8); MONO % 7.9 % (0.0-10.0); NRBC % 0.1 % (0.0-2.0); PLATELET COUNT 260 K/uL (130-400); WHITE BLOOD COUNT 19.3 K/uL (4.8-10.8)
[2016-08-03 16:44] LABS: CHLORIDE 97 mmol/L (98-107); POTASSIUM 4.1 mmol/L (3.6-5.2); SODIUM 134 mmol/L (132-148)
[2016-08-03 16:46] LABS: GFR AFRICAN-AMERICAN > 60
[2016-08-03 16:47] LABS: ALB/GLOB RATIO 1.5 (1.0-2.1); ALKALINE PHOSPHATASE 115 U/L (38-126); ALT/SGPT 47 U/L (9-52); AST/SGOT 41 U/L (14-36); BILIRUBIN,TOTAL 0.4 mg/dL (0.2-1.3); BLOOD UREA NITROGEN 28 mg/dL (7-17); CALCIUM 9.5 mg/dl (8.6-10.4); CARBON DIOXIDE 26 mmol/L (22-30); GLUCOSE,RANDOM 243 mg/dL (65-105)
[2016-08-03 16:55] LABS: METAMYELOCYTE 1 % (0-0); NEUTROPHIL 82 % (50-75); TOTAL CELLS COUNTED 100
[2016-08-03 16:56] LABS: LARGE PLATELETS PRESENT
[2016-08-04] MEDS: MethylPREDNISolone 40 mg Vial IV SCH ×3 (06:20→21:28)
--- NOTE | 2016-08-04 14:24 | CP.PCM.PN ---
Subjective - Date & Time of Evaluation Date of Evaluation: 08/04/16 Time of Evaluation: 14:23 - Subjective Subjective: CHIEF COMPLAINTS TODAY : LESS SOB COUGH MILD ROS. HEENT : N. Resp : POS cough, wheezing ,pleuritic CP , NO hemoptysis Cardio : No anginal CP, PND, orthopnea, palpitation GI : No abd.pain, n/v ,diarrhea or GI bleeding . 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 Musculoskel : No joint swelling , Derm : No rash SEEN Psych : Normal affect. Ext : No swelling ,calf pain PE. Pt. is alert awake in no distress. V.S As noted in the chart Head ,ear nose,throat and eyes : Normal. Neck : Supple with normal carotids. Lungs: MATTY. SCATTERED RONCHI Heart : S1 & S2 normal with S4. No murmur. Abd : Soft non tender with normal bowel sounds. Neuro : Moves all ext. with no localized deficit. Ext : No edema with intact pulses.Non tender calves Derm : No rashes or decubitus ulcer. LABS/RADIOLOGY: CT CHEST : BULLOUS EMPHYSEMA, BRONCHITIS , RML INFILTRATE ASSESSMENT/PLAN : TAPER STEROIDS Objective - Vital Signs/Intake and Output Vital Signs (last 24 hours): Temp Pulse Resp BP Pulse Ox 97.9 F 92 H 20 136/67 97 08/04/16 13:47 08/04/16 13:47 08/04/16 13:47 08/04/16 13:47 08/04/16 13:47 - Medications Medications: Current Medications Ciprofloxacin (Cipro) 500 mg PO BID [facility] Last Admin: 08/04/16 10:30 Dose: 500 mg Hydroxyzine HCl (Atarax) 25 mg PO TID [facility] Last Admin: 08/04/16 13:48 Dose: Not Given Methylprednisolone (Solu-Medrol) 60 mg IV Q8 [facility] Last Admin: 08/04/16 13:46 Dose: 60 mg Montelukast Sodium (Singulair) 10 mg PO HS [facility] Last Admin: 08/03/16 21:39 Dose: 10 mg Nicotine (Nicoderm Cq) 1 patch TD DAILY [facility] Last Admin: 08/04/16 10:30 Dose: 1 patch - Labs Labs: 08/03/16 16:31 08/03/16 16:31
[2016-08-05] MEDS: MethylPREDNISolone 40 mg Vial IV SCH ×2 (05:23→14:42)
--- NOTE | 2016-08-05 12:39 | CP.PCM.DIS ---
Provider - Provider Date of Admission: 07/31/16 15:57 Attending physician: Nancy Mariscal MD Time Spent in preparation of Discharge (in minutes): 35 Hospital Course - Lab Results Lab Results: Most Recent Lab Values WBC 19.3 K/uL (4.8-10.8) H 08/03/16 16:31 RBC 4.78 Mil/uL (3.80-5.20) 08/03/16 16:31 Hgb 14.8 g/dL (11.0-16.0) 08/03/16 16:31 Hct 44.4 % (34.0-47.0) 08/03/16 16:31 MCV 93.0 fL (81.0-99.0) 08/03/16 16:31 MCH 30.9 pg (27.0-31.0) 08/03/16 16:31 MCHC 33.2 g/dL (33.0-37.0) 08/03/16 16:31 RDW 13.0 % (11.5-14.5) 08/03/16 16:31 Plt Count 260 K/uL (130-400) 08/03/16 16:31 MPV 9.3 fL (7.2-11.7) 08/03/16 16:31 Neut % (Auto) 81.6 % (50.0-75.0) H 08/03/16 16:31 Lymph % (Auto) 9.1 % (20.0-40.0) L 08/03/16 16:31 [place] % (Auto) 7.9 % (0.0-10.0) 08/03/16 16:31 Eos % (Auto) 0.2 % (0.0-4.0) 08/03/16 16:31 Baso % (Auto) 1.2 % (0.0-2.0) 08/03/16 16:31 Neut # 15.7 K/uL (1.8-7.0) H 08/03/16 16:31 Lymph # 1.8 K/uL (1.0-4.3) 08/03/16 16:31 [place] # 1.5 K/uL (0.0-0.8) H 08/03/16 16:31 Eos # 0.0 K/uL (0.0-0.7) 08/03/16 16:31 Baso # 0.2 K/uL (0.0-0.2) 08/03/16 16:31 Neutrophils % (Manual) 82 % (50-75) H 08/03/16 16:31 Band Neutrophils % 2 % (0-2) 08/03/16 16:31 Lymphocytes % (Manual) 8 % (20-40) L 08/03/16 16:31 Monocytes % (Manual) 7 % (0-10) 08/03/16 16:31 Metamyelocytes % 1 % (0-0) H 08/03/16 16:31 Differential Comment 07/31/16 06:24 Toxic Granulation Present 08/03/16 16:31 Platelet Estimate Normal (NORMAL) 08/03/16 16:31 Large Platelets Present 08/03/16 16:31 Giant Platelets Present 08/03/16 08:23 RBC Morphology Normal 08/02/16 08:36 Polychromasia Slight 08/03/16 16:31 Hypochromasia (manual) Slight 08/03/16 16:31 Poikilocytosis (manual Slight 08/03/16 16:31 Anisocytosis (manual) Slight 08/03/16 16:31 Macrocytosis (manual) Slight 08/03/16 08:23 Benton Cells Slight 08/03/16 16:31 ESR 13 mm/hr (0-20) 07/30/16 08:29 Sodium 134 mmol/L (132-148) 08/03/16 16:31 Potassium 4.1 mmol/L (3.6-5.2) 08/03/16 16:31 Chloride 97 mmol/L (98-107) L 08/03/16 16:31 Carbon Dioxide 26 mmol/L (22-30) 08/03/16 16:31 Anion Gap 15 (10-20) 08/03/16 16:31 BUN 28 mg/dL (7-17) H 08/03/16 16:31 Creatinine 0.7 MG/DL (0.7-1.2) 08/03/16 16:31 Est GFR ( Amer) > 60 08/03/16 16:31 Est GFR (Non-Af Amer) > 60 08/03/16 16:31 POC Glucose (mg/dL) 266 mg/dL (65-110) H 08/04/16 11:26 Random Glucose 243 mg/dL (65-105) H 08/03/16 16:31 Calcium 9.5 mg/dl (8.6-10.4) 08/03/16 16:31 Total Bilirubin 0.4 mg/dL (0.2-1.3) 08/03/16 16:31 AST 41 U/L (14-36) H D 08/03/16 16:31 ALT 47 U/L (9-52) 08/03/16 16:31 Alkaline Phosphatase 115 U/L (38-126) 08/03/16 16:31 C-React Prot High Sens 11.92 mg/L (1.00-3.00) H 07/30/16 08:29 Total Protein 7.0 g/dL (6.3-8.3) 08/03/16 16:31 Albumin 4.2 g/dL (3.5-5.0) 08/03/16 16:31 Globulin 2.8 gm/dL (2.2-3.9) 08/03/16 16:31 Albumin/Globulin Ratio 1.5 (1.0-2.1) 08/03/16 16:31 Urine Color Yellow (YELLOW) 07/29/16 20:46 Urine Clarity Clear (Clear) 07/29/16 20:46 Urine pH 6.0 (5.0-8.0) 07/29/16 20:46 Ur Specific [place] 1.027 (1.003-1.030) 07/29/16 20:46 Urine Protein Negative mg/dL (NEGATIVE) 07/29/16 20:46 Urine Glucose (UA) 3+ mg/dL (Normal) H 07/29/16 20:46 Urine Ketones Negative mg/dL (NEGATIVE) 07/29/16 20:46 Urine Blood Negative (NEGATIVE) 07/29/16 20:46 Urine Nitrate Negative (NEGATIVE) 07/29/16 20:46 Urine Bilirubin Negative (NEGATIVE) 07/29/16 20:46 Urine Urobilinogen Normal mg/dL (0.2-1.0) 07/29/16 20:46 Ur Leukocyte Esterase Neg [place]/uL (Negative) 07/29/16 20:46 Urine WBC (Auto) < 1 /hpf (0-5) 07/29/16 20:46 Urine RBC (Auto) < 1 /hpf (0-3) 07/29/16 20:46 Ur Squamous Epith Cells 1 /hpf (0-5) 07/29/16 20:46 Ur Transition Epith Cell < 1 /hpf (0-3) 07/29/16 20:46 Urine Bacteria Rare (<OCC) 07/29/16 20:46 IgE 617 kU/L (<ww=940) H 07/30/16 08:29 - Hospital Course Hospital Course: WHILE GOING TO WORK PT DEVELOPED RASH A/W SOB AND WHEEZING . PT RECEIVED MULTIPLE BRONCHODILATOR THERAPY BUT WHEEZE PERSISTED COUGH WITH WHITE EXPECTORATION PAST HIST. B.ASTHMA AND RASH FOR FEW MONTHS . NOT EVALUATED BY DERMATOLOGY PT RESPONDED TO IV AB/NEB/STEROIDS CT CHEST : BULLOUS EMPHYSEMA PT STABLE FOR DISCHARGE ON PO AB/MEDROPACK Discharge Plan - Follow Up Plan Condition: STABLE Disposition: HOME/ ROUTINE
[2016-08-05 16:17] VITALS: BP 146/67; PULSE 91; TEMP 98.2; O2SAT 97
--- NOTE | 2016-08-05 16:19 | CP.PCM.PN ---
Subjective - Date & Time of Evaluation Date of Evaluation: 08/05/16 Time of Evaluation: 16:22 - Subjective Subjective: alert, awake, no distress. Objective - Vital Signs/Intake and Output Vital Signs (last 24 hours): Temp Pulse Resp BP Pulse Ox 98.2 F 91 H 20 146/67 97 08/05/16 15:45 08/05/16 15:45 08/05/16 15:45 08/05/16 15:45 08/05/16 15:45 Intake and Output: 08/05/16 08/05/16 06:59 18:59 Intake Total 480 Balance 480 - Medications Medications: Current Medications Ciprofloxacin (Cipro) 500 mg PO BID [facility] Last Admin: 08/05/16 10:27 Dose: 500 mg Hydroxyzine HCl (Atarax) 25 mg PO TID [facility] Last Admin: 08/05/16 13:17 Dose: Not Given Methylprednisolone (Solu-Medrol) 40 mg IV Q8 [facility] Last Admin: 08/05/16 14:42 Dose: 40 mg Montelukast Sodium (Singulair) 10 mg PO HS [facility] Last Admin: 08/04/16 21:27 Dose: 10 mg Nicotine (Nicoderm Cq) 1 patch TD DAILY [facility] Last Admin: 08/05/16 10:27 Dose: 1 patch - Labs Labs: 08/03/16 16:31 08/03/16 16:31 Assessment and Plan - Assessment and Plan (Free Text) Assessment: Patient is seen and examined. Alert, orientedx3, denies pain, no wheezing or sob. D/W DR Mariscal , discharge plan for today on cipro, medrol alf and nebulizer set up at home. Advised to follow up in the office in 1 week.
== END 2016-08-05 21:34 | disposition home or self-care (01) | DRG 88 ==
LOC: C.ER 08:19 → C.9E 13:23 → C.5T 17:01 → OBSVTOIN 07-31 15:57
PROVIDERS: ADMIT Internal Medicine Cardiovascular Disease; ATTEND Internal Medicine Cardiovascular Disease
DX: J44.1 Chronic obstructive pulmonary disease with (acute) exacerbation (principal); J45.901 Unspecified asthma with (acute) exacerbation; L50.0 Allergic urticaria; R09.02 Hypoxemia; D72.829 Elevated white blood cell count, unspecified; F17.210 Nicotine dependence, cigarettes, uncomplicated; Z23 Encounter for immunization

== ENCOUNTER 2016-12-13 11:29 | Emergency (ER) | payer MEDICAID, OTHER ==
[2016-12-13 11:29] VITALS: BMI 21.9
[2016-12-13] MEDS ORDERED: Sodium Chloride 0.9% 1,000 ML IV ONE (12:07)
[2016-12-13] MEDS ORDERED: MethylPREDNISolone 40 mg Vial ONE (12:19)
[2016-12-13] MEDS: Albuterol-Ipratrop 3 mg / 0.5 (3 ml) UD IH SCH ×3 (12:20→12:56)
[2016-12-13 12:28] LABS: BASO # 0.1 K/uL (0.0-0.2); BASO % 0.6 % (0.0-2.0); EOS # 0.4 K/uL (0.0-0.7); EOS % 3.9 % (0.0-4.0); HEMATOCRIT 42.3 % (34.0-47.0); LYMPH % 29.1 % (20.0-40.0); MEAN CELL VOLUME 91.5 fL (81.0-99.0); MEAN CORPUSCULAR HGB CONC 34.9 g/dL (33.0-37.0); MEAN PLATELET VOLUME 9.3 fL (7.2-11.7); MONO # 1.2 K/uL (0.0-0.8); MONO % 11.5 % (0.0-10.0); RED CELL DISTRIBUTION WIDTH 13.4 % (11.5-14.5); WHITE BLOOD COUNT 10.4 K/uL (4.8-10.8)
[2016-12-13] MEDS ORDERED: Albuterol-Ipratrop 3 mg / 0.5 (3 ml) UD ONE (12:29)
[2016-12-13 12:34] LABS: CHLORIDE 100 mmol/L (98-107)
[2016-12-13 12:35] LABS: POTASSIUM 4.4 mmol/L (3.6-5.2); SODIUM 136 mmol/L (132-148)
[2016-12-13 12:37] LABS: GFR AFRICAN-AMERICAN > 60
[2016-12-13 12:38] LABS: BLOOD UREA NITROGEN 13 mg/dL (7-17); CALCIUM 9.8 mg/dl (8.6-10.4); CARBON DIOXIDE 24 mmol/L (22-30); GLUCOSE,RANDOM 78 mg/dL (65-105)
--- NOTE | 2016-12-13 12:39 | C.PDOC ---
History Of Present Illness 61 year old female, with past medical history of asthma, presents to Emergency Department for evaluation of productive cough, with white sputum for the last 3 days, and shortness of breath for the last 2 days. Patient reports associated chest tightness with cough. Denies using nebulizer at home. Otherwise, denies fever, chills, or any other associated symptoms at this time. Time Seen by Provider: 12/13/16 12:04 Chief Complaint (Nursing): Flu-like Symptoms History Per: Patient History/Exam Limitations: no limitations Onset/Duration Of Symptoms: Days (3) Current Symptoms Are (Timing): Still Present Location Of Pain: None Sick Contacts (Context): None Associated Symptoms: Cough, Sputum. denies: Fever, Chills, Sore Throat, Neck Pain, Nasal Congestion Recent travel outside of the [place]: No Additional History Per: Patient Past Medical History Reviewed: Historical Data, Nursing Documentation, Vital Signs Vital Signs: Last Vital Signs Temp 98.7 F 12/13/16 13:41 Pulse 100 H 12/13/16 13:41 Resp 20 12/13/16 13:41 BP 134/78 12/13/16 13:41 Pulse Ox 96 12/13/16 13:41 - Medical History PMH: Asthma, Depression, Emphysema Denies: Chronic Kidney Disease Family History: States: Unknown Family Hx - Social History Hx Alcohol Use: No Hx Substance Use: No - Immunization History Hx Tetanus Toxoid Vaccination: Yes Hx Influenza Vaccination: Yes Hx Pneumococcal Vaccination: No Review Of Systems Except As Marked, All Systems Reviewed And Found Negative. Constitutional: Negative for: Fever, Chills Cardiovascular: Positive for: Chest Pain (tightness). Negative for: Palpitations, Edema, Light Headedness Respiratory: Positive for: Cough, Shortness of Breath, Sputum. Negative for: Hemoptysis Gastrointestinal: Negative for: Nausea, Vomiting, Abdominal Pain, Diarrhea Neurological: Negative for: Headache, Dizziness Physical Exam - Physical Exam Appears: Non-toxic, No Acute Distress Skin: Normal Color, Warm, Dry Head: Atraumatic, Normacephalic Eye(s): bilateral: Normal Inspection, PERRL, EOMI Ear(s): Bilateral: Normal Nose: Normal Oral Mucosa: Moist Tongue: Normal Appearing Throat: Normal, No Erythema, No Exudate, No Drooling Neck: Normal ROM, Supple Chest: Symmetrical, No Tenderness, No Ecchymosis Cardiovascular: No Murmur, Other (tachycardic) Respiratory: No Accessory Muscle Use, No Rales, No Rhonchi, Wheezing (mild expiratory) Gastrointestinal/Abdominal: Soft, No Tenderness Back: Normal Inspection Extremity: Normal ROM, No Pedal Edema, No Deformity Neurological/Psych: Oriented x3, Normal Speech, Normal Cognition Gait: Steady ED Course And Treatment - Laboratory Results Result Diagrams: 12/13/16 12:23 12/13/16 12:23 ECG: Interpreted By Me, Viewed By Me ECG Rhythm: Sinus Tachycardia ECG Interpretation: Normal Rate From EC (bpm) O2 Sat by Pulse Oximetry: 97 (RA) Pulse Ox Interpretation: Normal - Radiology CXR: Interpreted by Me, Viewed By Me CXR Interpretation: Yes: No Acute Disease Medical Decision Making Medical Decision Making: Plan: * Blood work * CXR * Albuterol, Solu-Medrol, IV fluids * Reassess and dispo Progress note: Labs reviewed and unremarkable. On re-evaluation, patient has no fever and in no respiratory distress. She reports feeling better. Lungs are clear bilaterally. she feels comfortable going home and will be discharged. Patient given follow up instructions. Instructed to return to ER if symptoms worsen or new symptoms arise. Disposition Counseled Patient/Family Regarding: Diagnosis, Need For Followup, Rx Given - Disposition Disposition: HOME/ ROUTINE Disposition Time: 13:33 Condition: STABLE Additional Instructions: Vaya a hampton mdico o la clnica en 2-5 srinivasan sin falta, para mas evaluacin. Mastic los medicamentos simone indicado. Volver a la dillon de emergencia en cualquier momento si los sntomas persisten o empeoran. 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 - Scribe Statement The provider has reviewed the documentation as recorded by the Scribe Robel Merrill All medical record entries made by the Scribe were at my direction and personally dictated by me. I have reviewed the chart and agree that the record accurately reflects my personal performance of the history, physical exam, medical decision making, and the department course for this patient. I have also personally directed, reviewed, and agree with the discharge instructions and disposition.
--- NOTE | 2016-12-13 13:13 | RAD ---
HISTORY: SOB COMPARISON: Comparison made with prior chest radiograph and CT scan chest both dated 08/01/2016 TECHNIQUE: Chest PA and lateral FINDINGS: LUNGS: The current study reveals increased coarsened/interstitial markings consistent with underlying reactive/inflammatory airway disease or viral illness. Additionally, there are several small nodular densities in the right upper lung field consistent with multiple granulomata a few which are calcified. . Multiple of blebs and small bullous changes again seen in the both lung apices. Note these changes are seen to much better advantage on prior CT scan PLEURA: No significant pleural effusion identified. No pneumothorax apparent. CARDIOVASCULAR: Normal. OSSEOUS STRUCTURES: No significant abnormalities. VISUALIZED UPPER ABDOMEN: Normal. OTHER FINDINGS: None. IMPRESSION: Increased coarsened/interstitial markings consistent with underlying reactive/inflammatory airway disease or viral illness. Additionally, there are several small nodular densities in the right upper lung field consistent with multiple granulomata a few which are calcified. Multiple of blebs and small bullous changes again seen in the both lung apices. Note these changes are seen to much better advantage on prior CT scan
[2016-12-13 13:42] VITALS: BP 134/78; PULSE 100; RESP 20; TEMP 98.7
[2016-12-13 14:06] VITALS: O2SAT 97
--- NOTE | 2016-12-16 21:37 | CARD ---
APPROVED REPORT EKG Measurement Heart [id number] <Conclusion> Sinus tachycardia Otherwise normal ECG
== END 2016-12-13 13:42 | disposition home or self-care (01) ==
LOC: C.ER 11:29
DX: J45.901 Unspecified asthma with (acute) exacerbation (principal)
CPT/HCPCS: 71020; 80048; 85025; 93005; 94640; 96361; 96374; 99284; J2930; J7040

== ENCOUNTER 2017-03-08 11:36 | Emergency (ER) | payer MEDICAID, OTHER ==
[2017-03-08 11:36] VITALS: BMI 21.9
[2017-03-08 12:15] VITALS: BP 148/74; PULSE 99; TEMP 98.6; O2SAT 98
--- NOTE | 2017-03-08 12:38 | C.PDOC ---
History Of Present Illness 61 y/o female with past medical history of asthma presents to the ED complaining of cough and shortness of breath x 1 week. Patient reports that she hasn't taken flu shot this year. Denies any further medical complaints. Time Seen by Provider: 03/08/17 12:18 Chief Complaint (Nursing): Cough, Cold, Congestion History Per: Patient History/Exam Limitations: no limitations Onset/Duration Of Symptoms: Other (x1 week) Current Symptoms Are (Timing): Still Present Past Medical History Reviewed: Historical Data, Nursing Documentation, Vital Signs Vital Signs: Last Vital Signs Temp 98.6 F 03/08/17 12:13 Pulse 99 H 03/08/17 12:13 Resp 16 03/08/17 13:29 BP 148/74 03/08/17 12:13 Pulse Ox 98 03/08/17 12:39 - Medical History PMH: Asthma, Depression, Emphysema Denies: Chronic Kidney Disease Family History: States: Unknown Family Hx - Social History Hx Tobacco Use: Yes (Heavy Smoker > 10 Cigarettes Daily) Hx Alcohol Use: No Hx Substance Use: No - Immunization History Hx Tetanus Toxoid Vaccination: No Hx Influenza Vaccination: No Hx Pneumococcal Vaccination: No Review Of Systems Except As Marked, All Systems Reviewed And Found Negative. (As per HPI, otherwise negative) Respiratory: Positive for: Cough, Shortness of Breath Physical Exam - Physical Exam Appears: Well, No Acute Distress Skin: Normal Color, Warm, Dry Head: Atraumatic, Normacephalic Eye(s): bilateral: Normal Inspection, PERRL, EOMI Nose: Normal Throat: Normal Neck: Normal, Supple Cardiovascular: Rhythm Regular, No Murmur Respiratory: No Accessory Muscle Use (left bronchi), Rales Gastrointestinal/Abdominal: Normal Exam Back: Normal Inspection Extremity: Normal ROM Neurological/Psych: Oriented x3 ED Course And Treatment O2 Sat by Pulse Oximetry: 98 (RA) Pulse Ox Interpretation: Normal Medical Decision Making Medical Decision Making: Time: 12:36 Upon provider reevaluation patient is feeling better, is medically stable, and requires no further treatment in the ED at this time. Patient will be discharged home with Rx for Albuterol HFA 2puff IH, Azithromycin 1tab PO and Guaifenesin 1tbs PO. Counseling was provided and all questions were answered regarding diagnosis. There is agreement to discharge plan. Return if symptoms persist or worsen. Clinical Impression: Tobacco dependence Scribe Attestation: Documented by Corinna Merrill acting as a scribe for Ed Esposito MD. Scribe Attestation: All medical record entries made by the Scribe were at my direction and personally dictated by me. I have reviewed the chart and agree that the record accurately reflects my personal performance of the history, physical exam, medical decision making, and the department course for this patient. I have also personally directed, reviewed, and agree with the discharge instructions and disposition. Disposition - Disposition Disposition: HOME/ ROUTINE Disposition Time: 12:36 Condition: STABLE Additional Instructions: Ms. Franklin, thank you for letting us take care of you today. Return to the ER if your symptoms worsen, or if any problems. Take the medication listed below as prescribed. Follow up with Dr. Corona next week for a re-evaluation. It is very important that you quit smoking. Prescriptions: Albuterol HFA [Ventolin HFA 90 mcg/actuation (8 g)] 2 puff IH [id number] PRN #1 inhaler PRN Reason: Cough Azithromycin [Zithromax] 1 tab PO DAILY #7 tablet Guaifenesin [Children's Chest Congestion] 1 tbs PO Q6 PRN #6 oz PRN Reason: Cough Instructions: How to Stop Smoking (ED), Acute Bronchitis (ED) Forms: Gen Discharge Inst Slovenian, [facility] (Slovenian) Print Language: NEPALI - Clinical Impression Clinical Impression: Bronchitis, Tobacco dependence
[2017-03-08 13:30] VITALS: RESP 16
== END 2017-03-08 13:29 | disposition home or self-care (01) ==
LOC: C.ER 11:36
DX: J40 Bronchitis, not specified as acute or chronic (principal); F17.210 Nicotine dependence, cigarettes, uncomplicated

== ENCOUNTER 2018-01-12 08:15 | Emergency (ER) | payer MEDICAID, OTHER ==
[2018-01-12 08:15] VITALS: BMI 21.9
[2018-01-12] MEDS ORDERED: Albuterol-Ipratrop 3 mg / 0.5 (3 ml) UD IH SCH (09:30)
[2018-01-12] MEDS ORDERED: Albuterol-Ipratrop 3 mg / 0.5 (3 ml) UD ONE (09:49)
[2018-01-12 09:58] LABS: BASO # 0.1 K/uL (0.0-0.2); BASO % 0.9 % (0.0-2.0); EOS # 0.4 K/uL (0.0-0.7); EOS % 4.4 % (0.0-4.0); HEMOGLOBIN 14.4 g/dL (11.0-16.0); LYMPH # 1.3 K/uL (1.0-4.3); LYMPH % 13.2 % (20.0-40.0); MEAN CELL VOLUME 92.5 fL (81.0-99.0); MEAN CORPUSCULAR HEMOGLOBIN 32.2 pg (27.0-31.0); MEAN CORPUSCULAR HGB CONC 34.8 g/dL (33.0-37.0); MEAN PLATELET VOLUME 9.7 fL (7.2-11.7); MONO # 1.2 K/uL (0.0-0.8); MONO % 13.1 % (0.0-10.0); NEUT # 6.5 K/uL (1.8-7.0); NEUT % 68.4 % (50.0-75.0); RBC 4.45 Mil/uL (3.80-5.20); RED CELL DISTRIBUTION WIDTH 13.3 % (11.5-14.5); WHITE BLOOD COUNT 9.5 K/uL (4.8-10.8)
[2018-01-12 10:11] LABS: ALB/GLOB RATIO 1.7 (1.0-2.1); ALBUMIN 4.7 g/dL (3.5-5.0); ALT/SGPT 22 U/L (9-52); AST/SGOT 24 U/L (14-36); BLOOD UREA NITROGEN 14 mg/dL (7-17); CALCIUM 9.2 mg/dl (8.6-10.4); GFR NON-AFRICAN AMERICAN > 60
[2018-01-12 10:20] LABS: B-TYPE NATRIURETIC PEPTIDE 98.6 pg/mL (0-900)
--- NOTE | 2018-01-12 10:22 | C.PDOC ---
History Of Present Illness 62 year old female with PMHx of asthma presents to the ED complaining of cough, nasal congestion, chest congestion and shortness of breath for 4 days. Reports that she since last night she has back pain, chest pain, and shortness of breath is worse. Notes that walking makes her tired and she has dyspnea on exertion. Also complains of subjective fever and chills. Denies any headache, abdominal pain, nausea, vomiting, or any other complaints. Time Seen by Provider: 01/12/18 09:17 Chief Complaint (Nursing): Cough, Cold, Congestion History Per: Patient History/Exam Limitations: no limitations Onset/Duration Of Symptoms: Days (4) Current Symptoms Are (Timing): Still Present Associated Symptoms: Dyspnea, Cough, Chest Pain Past Medical History Reviewed: Historical Data, Nursing Documentation, Vital Signs Vital Signs: Last Vital Signs Temp 99.1 F 01/12/18 08:36 Pulse 106 H 01/12/18 08:36 Resp 18 01/12/18 08:36 BP 116/74 01/12/18 08:36 Pulse Ox 94 L 01/12/18 08:36 - Medical History PMH: Asthma, Depression, Emphysema Denies: Chronic Kidney Disease Other Surgeries: Hx of surgeries Family History: States: No Known Family Hx - Social History Hx Tobacco Use: Yes (Heavy Smoker > 10 Cigarettes Daily) Hx Alcohol Use: No Hx Substance Use: No - Immunization History Hx Tetanus Toxoid Vaccination: No Hx Influenza Vaccination: No Hx Pneumococcal Vaccination: No Review Of Systems Except As Marked, All Systems Reviewed And Found Negative. Constitutional: Positive for: Fever, Chills ENT: Positive for: Nose Congestion Cardiovascular: Positive for: Chest Pain Respiratory: Positive for: Cough, Shortness of Breath, SOB with Excertion Musculoskeletal: Positive for: Back Pain Neurological: Negative for: Headache Physical Exam - Physical Exam Appears: Non-toxic, Other (afebrile, ill appearing ) Skin: Warm, Dry Head: Normacephalic Eye(s): bilateral: Normal Inspection Oral Mucosa: Moist Tongue: Normal Appearing Lips: Normal Appearing Gingiva: Normal Appearing Throat: Normal, No Erythema, No Exudate Neck: Normal ROM, Supple Chest: Symmetrical Cardiovascular: Rhythm Regular Respiratory: No Rales, No Rhonchi, No Wheezing Gastrointestinal/Abdominal: Soft, No Tenderness Extremity: No Pedal Edema Extremity: Bilateral: Atraumatic, Normal Color And Temperature, Normal ROM Neurological/Psych: Oriented x3, Normal Speech ED Course And Treatment - Laboratory Results Result Diagrams: 01/12/18 09:55 01/12/18 09:55 ECG: Interpreted By Me, Viewed By Me ECG Rhythm: Sinus Rhythm ECG Interpretation: No Acute Changes Interpretation Of ECG: No ST elevation or depression Rate From EC O2 Sat by Pulse Oximetry: 94 Pulse Ox Interpretation: Abnormal - Radiology CXR: Interpreted by Me, Viewed By Me CXR Interpretation: Yes: Other (No consolidation ) Medical Decision Making Medical Decision Making: Plan - EKG - CXR - Tylenol 975mg PO - Motrin 600mg PO - Predisone 60mg PO - Influenza A B - Neb treatment On reevaluation, patient reports feeling better. Labs are WNL. CXR shows no acute disease. Patient ready and stable for discharge. Disposition Counseled Patient/Family Regarding: Studies Performed, Diagnosis, Need For Followup - Disposition Disposition: HOME/ ROUTINE Disposition Time: 12:32 Condition: STABLE Instructions: Asthma, Adult (DC), Viral Syndrome (DC) Forms: Gen Discharge Inst German, [facility] (German) - POA Present On Arrival: None - Clinical Impression Clinical Impression: Influenza-like illness, Asthma - Scribe Statement The provider has reviewed the documentation as recorded by the Scriberen Ghotra All medical record entries made by the Scribe were at my direction and personally dictated by me. I have reviewed the chart and agree that the record accurately reflects my personal performance of the history, physical exam, medical decision making, and the department course for this patient. I have also personally directed, reviewed, and agree with the discharge instructions and disposition.
[2018-01-12 11:19] VITALS: BP 106/64; PULSE 91; RESP 16; TEMP 99.3
[2018-01-12 12:28] VITALS: O2SAT 94
--- NOTE | 2018-01-12 13:36 | RAD ---
Date of service: 01/12/2018 HISTORY: chest pain COMPARISON: The comparison chest 12/13/[address] scan chest 08/01/2016. The the. TECHNIQUE: Chest PA and lateral FINDINGS: LUNGS: Redemonstrated are changes of COPD with hyperinflation and coarsened interstitial markings with prominent blebs and or small bullous changes both lung apices No acute consolidation. PLEURA: No significant pleural effusion identified. No pneumothorax apparent. CARDIOVASCULAR: Aortic atherosclerotic calcification present. Normal cardiac size. No pulmonary vascular congestion. OSSEOUS STRUCTURES: Mild multilevel degenerative spondylosis of the thoracic spine VISUALIZED UPPER ABDOMEN: Normal. OTHER FINDINGS: None. IMPRESSION: Redemonstrated are changes of COPD with hyperinflation and coarsened interstitial markings with prominent blebs and or small bullous changes both lung apices No acute consolidation.
--- NOTE | 2018-01-13 17:14 | CARD ---
APPROVED REPORT Date of service: 01/12/2018 EKG Measurement Heart [id number] <Conclusion> Normal sinus rhythm Normal ECG
== END 2018-01-12 12:55 | disposition home or self-care (01) ==
LOC: C.ER 08:15
DX: J11.1 Influenza due to unidentified influenza virus with other respiratory manifestations (principal); J45.909 Unspecified asthma, uncomplicated; F17.210 Nicotine dependence, cigarettes, uncomplicated